=== PATIENT | male | born 1940 | race Caucasian/White ===

== ENCOUNTER 2023-12-10 10:59 | Outpatient (RCR) | payer OTHER, SELFPAY | END 2023-12-10 23:59 | disposition home or self-care (01) | LOC: RPT 10:59 | PROVIDERS: ATTENDING PHYSICIAN Orthopaedic Surgery Adult Reconstructive Orthopaedic Surgery; FAMILY PHYSICIAN Internal Medicine | DX: M76.892 Other specified enthesopathies of left lower limb, excluding foot (principal); M76.891 Other specified enthesopathies of right lower limb, excluding foot; M54.59 Other low back pain; Z73.6 Limitation of activities due to disability; R26.2 Difficulty in walking, not elsewhere classified; M62.81 Muscle weakness (generalized) | CPT/HCPCS: 97010; 97110; 97112; 97162; 97530 ==

== ENCOUNTER 2023-12-29 10:56 | Outpatient (RCR) | payer OTHER, SELFPAY | END 2024-01-07 23:59 | disposition home or self-care (01) | LOC: RPT 10:56 | PROVIDERS: ATTENDING PHYSICIAN Orthopaedic Surgery Adult Reconstructive Orthopaedic Surgery; FAMILY PHYSICIAN Internal Medicine | DX: M76.892 Other specified enthesopathies of left lower limb, excluding foot (principal); M76.891 Other specified enthesopathies of right lower limb, excluding foot; M54.59 Other low back pain; Z73.6 Limitation of activities due to disability; R26.2 Difficulty in walking, not elsewhere classified; M62.81 Muscle weakness (generalized) | CPT/HCPCS: 97010; 97110; 97112 ==

== ENCOUNTER 2024-02-08 10:03 | Emergency (ER) | payer OTHER, SELFPAY ==
[2024-02-08 10:19] VITALS: BP 144/79
--- NOTE | 2024-02-08 11:39 | ED.GENMED ---
History of Present Illness
General
Chief Complaint: Musculo-Skeletal Complaint
Source: patient
Exam Limitations: none
Time Seen by Provider: 02/08/24 11:15
Nursing documentation reviewed up to this point in time: agreed with
Travel History
Have you had any contact with someone who has COVID-19?: No
Do you have any symptoms of coronavirus? Fever > 100 degrees, chills, cough, shortness of breath, sore throat, loss of taste or smell, muscle aches, or headache?: No
History of Present Illness
History of Present Illness:
Patient is a 83 year old male with hx CAD, hypertension, hyperlipidemia presenting to the emergency department for evaluation of right shoulder pain. Patient states that he was attempting to kill a bug yesterday while in his bathroom when he
slipped causing him to fall. He proceeded to strike his right shoulder on the bathroom cabinet. He did not hit his head or lose consciousness. He denies sustaining any other injuries in the fall.
Patient reports significant pain in his right much worse with movement. He denies any numbness or tingling right upper extremity. Patient denies any headache, neck pain, back pain. Patient denies any chest pain or shortness of breath.
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 Nassar for corticosteroid injections in the past.
Past History
Past History
ED Past Medical History: CAD, HTN, Hypercholesterolemia, Other and Other (PVD)
Social History
Tobacco: Non-smoker
Alcohol: Binge drinker
Drug: None
Personal:
Living: with family
Employment: Retired
Family History
Family History: Other (Noncontributory)
Review of Systems
Review of Systems
Allergies reviewed?: Yes
All Other Systems: ROS reviewed and negative except as documented in HPI and ROS
Phy Exam
Physical Exam
Physical Exam:
Vitals: Patient's vital signs are stable. Afebrile
General: Patient is well appearing, no acute distress
Skin: Warm and dry, no rashes or lesions. No ecchymosis
Head: Normocephalic, atraumatic. No evidence of head trauma.
Eyes: Sclera nonicteric. EOMs intact. No nystagmus.
Throat: Protecting airway
Neck: Normal ROM, no cervical spine tenderness, no meningismus. No midline spinal tenderness.
Cardiac: Regular rate and rhythm, no murmurs.
Pulm: Normal respiratory effort, no wheezes, rales, rhonchi heard on exam.
Abdomen: No abdominal tenderness.
Extremities: Significant pain in RUE with shoulder abduction and external rotation. Limited ROM due to pain. No obvious swelling, bruising, or bony deformity of right upper extremity. No bony tenderness of right shoulder, right clavicle, or right
upper arm. Full active ROM of both right elbow and right wrist without pain. Good distal pulses of RUE.
Neuro: AAOx3. CN II-XII intact. No focal neurologic deficits.
Psychiatric: Normal affect.
Course
Orders/Labs/Results
Orders:
Orders
02/08/24 10:22
Shoulder, Right, Trauma [CR Shoulder, Trauma - Right] Urgent
Comment:
Reason For Exam: pain after a fall
02/08/24 11:47
Sling Right-Treatment ONCE
02/08/24 11:56
Tetanus/Diphth/Acelpertussis [Adacel] 0.5 ml IM .ONCE ONE
Vital Signs
Initial and Last Documented VS:
Initial Vital Signs
Temp Pulse BP Pulse Ox
97.9 F 61 144/79 92
02/08/24 10:19 02/08/24 10:19 02/08/24 10:19 02/08/24 10:19
Last Documented Vital Signs
Temp Pulse BP Pulse Ox
97.9 F 61 144/79 92
02/08/24 10:19 02/08/24 10:19 02/08/24 10:19 02/08/24 10:19
MDM/Problems Addressed
Differential Diagnosis Includes:
Not limited to: fracture, sprain, contusion, rotator cuff injury, dislocation
MDM/Problems Addressed:
83 year old male presenting with right shoulder pain following trip and fall yesterday evening. Did not sustain any other injuries during fall. No head strike or LOC. Vitals stable. Exam as above. He does have significant pain with both abduction
and external rotation of right shoulder. There is no bony tenderness or obvious deformity. Good distal pulses. Xray negative for any acute fracture or dislocation. With degree of pain and decreased range of motion - high suspicion for
ligamentous/rotator cuff injury. Will place patient in shoulder sling and have patient follow-up with ortho. Discussed importance of continuous movement of shoulder to prevent frozen shoulder. NSAIDS/tylenol for pain. Return precautions discussed.
Patient stable for discharge. Ortho referral provided.
Chronic conditions affecting care:
Osteoarthritis
Acute Exacerbation and/or Progression of Chronic Illness:
N/A
*Radiology
Radiology exam reviewed: preliminary read by ED provider and radiology read reviewed
*Pulse Oximetry
Patient hypoxic: no
*EKG
Interpreted by ED Provider?: NA
*Phlebotomy Tech Interpretation
Rate: Phlebotomy Tech- N/A
*Critical Care Note
Total Time (30-74mins, 75-104mins- exclusive of procedures): Not Applicable
ED Attending Note
-
Portions of this chart may have been created with voice recognition software.� Occasional wrong word or��sound alike� substitutions may have occurred due to the inherent limitations of voice recognition software.
Discharge Plan
Departure
Patient Disposition: Home (Routine Discharge)
Date of Disposition: 02/08/24
Time of Disposition: 11:58
Patient with high blood pressure during this ER visit?: Yes
Condition: Good
Covid-19: Not Applicable
Discharge Problem:
Injury of right shoulder
Instructions: Rotator Cuff Injury (DC), Shoulder Sprain (DC), How to Use a Shoulder Sling ED
Prescriptions:
No Action
aspirin 81 MG tablet,delayed release (DR/EC)
81 mg PO DAILY 0RF
rosuvastatin 20 MG tablet
20 mg PO QPM Qty: 30 5RF
ticagrelor [Brilinta] 90 MG tablet
90 mg PO BID Qty: 60 11RF
acetaminophen 325 MG tablet
325 mg PO DAILYPRN PRN (Reason: mild pain/ headache)
omeprazole 40 MG capsule,delayed release(DR/EC)
40 mg PO DAILY
alprazolam 0.5 MG tablet
0.5 mg PO BIDPRN PRN (Reason: anxiety)
cholecalciferol (vitamin D3) 5,000 UNIT tablet,disintegrating
5,000 unit PO Q48H
furosemide 40 MG tablet
40 mg PO DAILY Qty: 5 0RF
Rx Instructions:
take one tablet once daily x 5 days then stop
potassium chloride [Klor-Con M20] 20 MEQ tablet,ER particles/crystals
20 meq PO DAILY Qty: 5 0RF
Rx Instructions:
take one tablet once daily x 5 days then stop
metoprolol tartrate 25 MG tablet
25 mg PO BID Qty: 60 3RF
Rx Instructions:
stop taking atenolol
oxycodone 5 MG tablet
5 mg PO Q6HPRN PRN (Reason: moderate - severe pain) Qty: 10 0RF
Rx Instructions:
do not take within 6 hours if xanax is used
Referrals:
Anthony Nassar MD [Active] - Call in 1-3 days for appt
Mic Carter MD [Family Provider] -
Activity Restrictions/Additional Instructions:
-RETURN TO THE EMERGENCY DEPARTMENT WITH ANY CHEST PAIN, SHORTNESS OF BREATH, INTRACTABLE PAIN, NUMBNESS/TINGLING IN RIGHT UPPER EXTREMITY, WORSENING IN CURRENT SYMPTOMS, OR ANY OTHER CONCERNS
-As discussed�you should continue to take Motrin/Tylenol as needed for discomfort. You should keep your right arm in your shoulder sling for comfort. You should be sure to move your shoulder around frequently throughout the day to prevent frozen
shoulder.
-Follow-up with orthopedics, Dr. Nassar in a few days for further evaluation/management. You may require further imaging
Interventions
Interventions:
*Nursing Disposition Last Done: 02/08/24 12:21
ED-Musculoskeletal Assessment Last Done: 02/08/24 11:12
Discharge Date and Time
Discharge Date/Time: 02/08/24 12:22
Print Language: UKRAINIAN
[2024-02-08] MEDS: ADACEL 0.5 ML IM (12:05)
== END 2024-02-08 12:22 | disposition home or self-care (01) ==
LOC: EMR 10:03
PROVIDERS: EMERGENCY PHYSICIAN Emergency Medicine; FAMILY PHYSICIAN Internal Medicine
DX: S49.91XA Unspecified injury of right shoulder and upper arm, initial encounter (principal); W01.198A Fall on same level from slipping, tripping and stumbling with subsequent striking against other object, initial encounter; Y93.89 Activity, other specified; Y92.002 Bathroom of unspecified non-institutional (private) residence as the place of occurrence of the external cause; I25.10 Atherosclerotic heart disease of native coronary artery without angina pectoris; I10 Essential (primary) hypertension; E78.00 Pure hypercholesterolemia, unspecified; I73.9 Peripheral vascular disease, unspecified; Z79.82 Long term (current) use of aspirin; Z88.8 Allergy status to other drugs, medicaments and biological substances
CPT/HCPCS: 99283; 73030; 90715

== ENCOUNTER 2024-03-04 14:39 | Emergency (ER) | payer OTHER, SELFPAY ==
[2024-03-04 14:41] VITALS: BP 152/75
--- NOTE | 2024-03-04 16:46 | ED.GENMED ---
History of Present Illness
<Andreina Lee PA-C - Last Filed: 03/04/24 20:26>
General
Chief Complaint: Fall
Source: patient
Exam Limitations: none
Time Seen by Provider: 03/04/24 16:44
Nursing documentation reviewed up to this point in time: agreed with
History of Present Illness
History of Present Illness:
Patient is an 83-year-old male presenting for evaluation of bilateral shoulder pain and weakness following mechanical fall yesterday afternoon. Patient states that he slipped in his garage while he was trying to connect his radio landing on his
right shoulder on a concrete step. He then rolled off the step landing on his left shoulder. Patient states he has been having significant pain in his bilateral shoulders and very limited range of motion due to pain since. Patient states that he
did not hit his head or lose consciousness. Patient denies any headache, neck pain, confusion, nausea/vomiting, visual changes. Patient denies any preceding dizziness, lightheadedness, chest pain, prior to fall. Patient denies sustaining any
other injuries in the fall.
Patient has been following with Dr. Nassar for injury of his right shoulder and is currently planning for an MRI shortly.
Past History
<Andreina Lee PA-C - Last Filed: 03/04/24 20:26>
Past History
ED Past Medical History: CAD, HTN, Hypercholesterolemia, Other and Other (PVD)
Social History
Tobacco: Non-smoker
Alcohol: Binge drinker
Drug: None
Personal:
Living: with family
Employment: Retired
Family History
Family History: Other (Noncontributory)
Review of Systems
<Andreina Lee PA-C - Last Filed: 03/04/24 20:26>
Review of Systems
Allergies reviewed?: Yes
All Other Systems: ROS reviewed and negative except as documented in HPI and ROS
Phy Exam
<Andreina Lee PA-C - Last Filed: 03/04/24 20:26>
Physical Exam
Physical Exam:
Vitals: Patient's vital signs are stable. Afebrile
General: Patient is well appearing, no acute distress. Nontoxic-appearing
Skin: Warm and dry, no rashes or lesions. No ecchymoses
Head: Normocephalic, atraumatic
Eyes: Sclera nonicteric. EOMs intact. No nystagmus.
Throat: Protecting airway
Neck: Normal ROM, no cervical spine tenderness, no meningismus. Trachea midline. No midline spinal tenderness
Cardiac: Regular rate and rhythm, no murmurs. No anterior chest wall tenderness or bruising
Pulm: Normal respiratory effort, no wheezes, rales, rhonchi heard on exam. No tenderness and bruising to bilateral anterior posterior ribs.
Abdomen: Abdomen soft. No abdominal tenderness.
Extremities: Right upper extremity without any bony tenderness, swelling, or bruising. Significant limitations in abduction of right shoulder, although flexion/extension intact against resistance. Right upper extremity neurovascularly intact.
Great distal pulses. Left upper extremity with some mild tenderness over AC joint without any obvious deformity. Significant limitations in abduction of left shoulder, although flexion extension intact against resistance. Left upper extremity
neurovascular intact. Great distal pulses
Neuro: AAOx3. CN II-XII intact. No focal neurologic deficits. Sensation fully intact
Psychiatric: Normal affect.
Course
<Andreina Lee PA-C - Last Filed: 03/04/24 20:26>
Orders/Labs/Results
Orders:
Orders
03/04/24 17:03
CR Shoulder, Trauma - Left Urgent
Reason For Exam: fall, pain + weakness
CR Shoulder, Trauma - Right Urgent
Reason For Exam: fall, pain + weakness
Vital Signs
Initial and Last Documented VS:
Initial Vital Signs
Temp Pulse Resp BP Pulse Ox
97.6 F 75 18 152/75 95
03/04/24 14:41 03/04/24 14:41 03/04/24 14:41 03/04/24 14:41 03/04/24 14:41
Last Documented Vital Signs
Temp Pulse Resp BP Pulse Ox
97.6 F 75 18 152/75 95
03/04/24 14:41 03/04/24 14:41 03/04/24 14:41 03/04/24 14:41 03/04/24 14:41
<Kennedy Sheikh MD - Last Filed: 03/04/24 17:50>
Orders/Labs/Results
Orders:
Orders
03/04/24 17:03
CR Shoulder, Trauma - Left Urgent
Reason For Exam: fall, pain + weakness
CR Shoulder, Trauma - Right Urgent
Reason For Exam: fall, pain + weakness
Vital Signs
Initial and Last Documented VS:
Initial Vital Signs
Temp Pulse Resp BP Pulse Ox
97.6 F 75 18 152/75 95
03/04/24 14:41 03/04/24 14:41 03/04/24 14:41 03/04/24 14:41 03/04/24 14:41
Last Documented Vital Signs
Temp Pulse Resp BP Pulse Ox
97.6 F 75 18 152/75 95
03/04/24 14:41 03/04/24 14:41 03/04/24 14:41 03/04/24 14:41 03/04/24 14:41
<Andreina Lee PA-C - Last Filed: 03/04/24 20:26>
MDM/Problems Addressed
Differential Diagnosis Includes:
Not limited to: Rotator cuff injury, shoulder fracture, shoulder sprain, shoulder dislocation
MDM/Problems Addressed:
83-year-old male presenting with bilateral shoulder pain and limited range of motion following mechanical fall yesterday. There was no head strike or loss of consciousness. Patient with chronic right shoulder injury which she has been following
with Dr. Nassar for which MRI is currently being scheduled. Patient's vital signs are stable. Physical exam as above. Patient does have significant difficulty with active abduction of bilateral shoulders due to pain, although flexion appears
intact. Right shoulder without any bony tenderness or obvious deformity. Left shoulder does have mild tenderness overlying the AC joint without any obvious bony deformity. There is no obvious abrasions, erythema, swelling, or bruising of
bilateral shoulders. No evidence of head trauma. No C-spine tenderness or midline spinal tenderness. No abdominal bruising or tenderness/bruising overlying anterior/posterior ribs bilaterally.
Patient recently took Motrin/Tylenol for pain. Will apply ice. Will check x-rays of both shoulders to ensure no acute fracture or dislocation�although I suspect likely rotator cuff injuries.
X-rays reviewed�no acute fractures or dislocations. Patient was offered shoulder sling�which she declined. Recommended Tylenol, ice, Ortho follow-up. This will likely require further imaging.
Patient comfortable with plan. All questions answered.
Chronic conditions affecting care:
N/A
Acute Exacerbation and/or Progression of Chronic Illness:
N/A
<Andreina Lee PA-C - Last Filed: 03/04/24 20:26>
*Radiology
Radiology exam reviewed: preliminary read by ED provider and radiology read reviewed
*Pulse Oximetry
Patient hypoxic: no
*EKG
Interpreted by ED Provider?: NA
*Family Development Specialist Interpretation
Rate: Family Development Specialist- N/A
*Critical Care Note
Total Time (30-74mins, 75-104mins- exclusive of procedures): Not Applicable
ED Attending Note
<Andreina Lee PA-C - Last Filed: 03/04/24 20:26>
-
Portions of this chart may have been created with voice recognition software.� Occasional wrong word or��sound alike� substitutions may have occurred due to the inherent limitations of voice recognition software.
<Kennedy Sheikh MD - Last Filed: 03/04/24 17:50>
ED Attending Note
Patient seen and examined by attending physician: Yes
I performed the substantive portion of visit, reviewed & personally made and approve the management plan that is documented in note by myself or SARAH.: Yes
ED Attending Note:
Patient fell yesterday landing on his right than left shoulder. Complaining of more left shoulder pain. Has had chronic ongoing right shoulder issues. No head injury no neck pain no syncope no other complaints.
On exam patient is nontoxic. Normocephalic atraumatic. Neck supple and nontender. No chest wall tender. He is nontoxic in appearance he has significant trouble abducting the right shoulder. He is able to flex and extend against resistance. No
point tenderness. No swelling no abrasion. The rest of the right upper extremity is within normal limits. Left upper extremity also has significant issues with abduction. Again able to flex and extend. Mild tenderness over the left AC joint
although no deformity. Good distal pulses and color.
Suspect patient has a rotator cuff tear to the left shoulder. Appears to have a chronic tear to the right. Discussed pain management. Also discussed slings and rotation of the arm to prevent frozen shoulder and orthopedic follow-up. Patient does
have help at home.
Discharge Plan
Departure
Patient Disposition: Home (Routine Discharge)
Date of Disposition: 03/04/24
Time of Disposition: 18:19
Patient with high blood pressure during this ER visit?: Yes
Condition: Good
Covid-19: Not Applicable
Discharge Problem:
Bilateral shoulder injury, Fall
Instructions: Rotator Cuff Injury (DC)
Prescriptions:
No Action
aspirin 81 MG tablet,delayed release (DR/EC)
81 mg PO DAILY 0RF
rosuvastatin 20 MG tablet
20 mg PO QPM Qty: 30 5RF
ticagrelor [Brilinta] 90 MG tablet
90 mg PO BID Qty: 60 11RF
acetaminophen 325 MG tablet
325 mg PO DAILYPRN PRN (Reason: mild pain/ headache)
omeprazole 40 MG capsule,delayed release(DR/EC)
40 mg PO DAILY
alprazolam 0.5 MG tablet
0.5 mg PO BIDPRN PRN (Reason: anxiety)
cholecalciferol (vitamin D3) 5,000 UNIT tablet,disintegrating
5,000 unit PO Q48H
furosemide 40 MG tablet
40 mg PO DAILY Qty: 5 0RF
Rx Instructions:
take one tablet once daily x 5 days then stop
potassium chloride [Klor-Con M20] 20 MEQ tablet,ER particles/crystals
20 meq PO DAILY Qty: 5 0RF
Rx Instructions:
take one tablet once daily x 5 days then stop
metoprolol tartrate 25 MG tablet
25 mg PO BID Qty: 60 3RF
Rx Instructions:
stop taking atenolol
oxycodone 5 MG tablet
5 mg PO Q6HPRN PRN (Reason: moderate - severe pain) Qty: 10 0RF
Rx Instructions:
do not take within 6 hours if xanax is used
Referrals:
Anthony Nassar MD [Active] - Next open appointment
Mic Carter MD [Family Provider] -
Activity Restrictions/Additional Instructions:
RETURN TO THE EMERGENCY DEPARTMENT WITH ANY HEADACHE, NECK PAIN, NUMBNESS/TINGLING IN BILATERAL UPPER EXTREMITIES, INTRACTABLE PAIN, WORSENING IN CURRENT SYMPTOMS, OR ANY OTHER CONCERNS
-As discussed�you should take Motrin and/or Tylenol as needed for discomfort. You should apply ice. You can keep arms and shoulder sling as needed for discomfort.
-As discussed�you should follow-up with orthopedics for further evaluation/management. You may require further imaging of the shoulder.
Interventions
Interventions:
*Nursing Disposition Last Done: 03/04/24 18:25
ED-Musculoskeletal Assessment Last Done: 03/04/24 18:17
ED- Neurological Assessment Last Done: 03/04/24 18:17
ED-Skin Assessment Last Done: 03/04/24 18:18
Discharge Date and Time
Discharge Date/Time: 03/04/24 18:29
Print Language: NIGERIAN
== END 2024-03-04 18:29 | disposition home or self-care (01) ==
LOC: EMR 14:39
PROVIDERS: EMERGENCY PHYSICIAN Emergency Medicine; FAMILY PHYSICIAN Internal Medicine
DX: S49.92XA Unspecified injury of left shoulder and upper arm, initial encounter (principal); S49.91XA Unspecified injury of right shoulder and upper arm, initial encounter; R53.1 Weakness; W01.0XXA Fall on same level from slipping, tripping and stumbling without subsequent striking against object, initial encounter; I25.10 Atherosclerotic heart disease of native coronary artery without angina pectoris; I10 Essential (primary) hypertension; E78.00 Pure hypercholesterolemia, unspecified; I73.9 Peripheral vascular disease, unspecified; K21.9 Gastro-esophageal reflux disease without esophagitis; K44.9 Diaphragmatic hernia without obstruction or gangrene; Z95.5 Presence of coronary angioplasty implant and graft; Z87.891 Personal history of nicotine dependence; Z88.8 Allergy status to other drugs, medicaments and biological substances
CPT/HCPCS: 99283; 73030

== ENCOUNTER → 2024-04-07 12:27 | Outpatient (REF) | payer OTHER, SELFPAY | LOC: RAD 12:27 | PROVIDERS: ATTENDING PHYSICIAN Internal Medicine | DX: M54.50 Low back pain, unspecified (principal) | CPT/HCPCS: 72110 ==

== ENCOUNTER → 2024-05-23 09:49 | Outpatient (REF) | payer OTHER, SELFPAY | LOC: RAD 09:49 | PROVIDERS: ATTENDING PHYSICIAN Physician Assistant; FAMILY PHYSICIAN Internal Medicine | DX: I71.40 Abdominal aortic aneurysm, without rupture, unspecified (principal); I73.9 Peripheral vascular disease, unspecified | CPT/HCPCS: 76770; 93922; 93925 ==

== ENCOUNTER 2024-08-08 13:32 | Emergency (ER) | payer OTHER, SELFPAY ==
[2024-08-08 13:35] VITALS: BP 108/81
[2024-08-08 13:36] VITALS: BP 108/81
[2024-08-08 13:45] VITALS: BMI 31.1
[2024-08-08 14:00] VITALS: BP 124/58
[2024-08-08 14:11] LABS: Hematocrit 37.4 % (39.0-52.0); Hemoglobin 12.4 g/dL (13.0-18.0); Mean Corp Hgb Conc. 33.2 g/dL (33.0-37.0); Mean Corpuscular Hgb 36.5 pg (27.0-31.0); Mean Platelet Volume 9.9 fL (7.4-10.4); Platelet Count 151 10^3/uL (130-400); White Blood Cell Count 6.2 10^3/uL (4.8-10.8)
--- NOTE | 2024-08-08 14:16 | ED.GENMED ---
History of Present Illness
<Andreina Lee PA-C - Last Filed: 08/08/24 18:26>
General
Chief Complaint: Fall
Source: patient
Exam Limitations: none
Time Seen by Provider: 08/08/24 13:56
Nursing documentation reviewed up to this point in time: agreed with
History of Present Illness
History of Present Illness:
84-year-old male with history CAD, hypertension, hyperlipidemia presenting to the emergency department via EMS following mechanical fall with associated posterior head strike. Patient states that he was stepping into his pickup truck when he lost
his footing falling backwards striking the back of his head on the cement. Patient denies any loss of consciousness however he was unable to get up on his own and called 911. His was inside at the time and did not witness the fall. Patient
reports a headache, right-sided neck pain, and left-sided rib pain. He does deny any nausea/vomiting, dizziness, visual changes, numbness/tingling in lower legs. Patient denies any back pain, chest pain, or shortness of breath.
Patient states that this was a mechanical fall and denies any preceding dizziness, lightheadedness.
Patient does take a baby aspirin. Patient does have a updated tetanus.
Past History
<Andreina Lee PA-C - Last Filed: 08/08/24 18:26>
Past History
ED Past Medical History: CAD, HTN, Hypercholesterolemia, Other and Other (PVD)
Social History
Tobacco: Non-smoker
Alcohol: Binge drinker
Drug: None
Personal:
Living: with family
Employment: Retired
Family History
Family History: Other (Noncontributory)
Review of Systems
<Andreina Lee PA-C - Last Filed: 08/08/24 18:26>
Review of Systems
Allergies reviewed?: Yes
All Other Systems: ROS reviewed and negative except as documented in HPI and ROS
Phy Exam
<Andreina Lee PA-C - Last Filed: 08/08/24 18:26>
Physical Exam
Physical Exam:
GENERAL: No acute distress
HEENT: Contusion to posterior scalp with mild abrasion. Extraocular muscles intact, no signs of entrapment, pupils equal round reactive light bilaterally, no proptosis or signs of orbital trauma. Dentition intact, no other obvious trauma
NECK: Arrives in cervical collar. No midline tenderness. Some mild right paracervical muscular tenderness.
BACK: no midline tenderness, no other obvious trauma
CHEST: Left lower anterior chest wall tenderness, no flail segment, no subcutaneous emphysema, no other obvious trauma
LUNGS: clear to auscultation bilaterally
CARDIOVASCULAR: regular rate and rhythm
ABDOMEN: soft, non-tender, no masses, no other obvious trauma
PELVIS: stable, no obvious injury
EXTREMITIES: Bilateral upper and lower nontender with full range of motion. Moving all extremities, distal pulses intact. Very minor abrasion to left hand at medial aspect not actively bleeding. No other obvious trauma
NEUROLOGIC: awake, alert x 3, no focal deficits. Strength 5-5 in upper and lower extremities. Fluid speech
Course
<Andreina Lee PA-C - Last Filed: 08/08/24 18:26>
Orders/Labs/Results
Orders:
Orders
08/08/24 13:46
CT Cervical Spine W/o Iv Contr Urgent
Comment:
Reason For Exam: fall
CT Head W/o Iv Contrast Urgent
Comment:
Reason For Exam: fall
CR Ribs-left 3 Vw W/pa Chest Urgent
Comment:
Reason For Exam: fall
08/08/24 13:49
BMP [Basic Metabolic Panel] Urgent
CBC/No Diff [Complete Blood Count/No Diff] Urgent
08/08/24 14:15
Acetaminophen [Tylenol] 650 mg PO NOW STA
08/08/24 16:36
Incentive Spirometry [Rx Incentive Spirometry] [RESP] Urgent
Frequency: q1h while awake
Abnormal Lab Results
08/08/24
13:49
RBC 3.40 L 10^6/uL
(4.70-6.10)
Hgb 12.4 L g/dL
(13.0-18.0)
Hct 37.4 L %
(39.0-52.0)
MCV 110.0 H fL
(80.0-94.0)
MCH 36.5 H pg
(27.0-31.0)
Creatinine 0.6 L mg/dL
(0.7-1.3)
Glucose 138 H mg/dl
(70-99)
08/08/24 13:49
08/08/24 13:49
Vital Signs
Initial and Last Documented VS:
Initial Vital Signs
Temp Pulse Resp BP Pulse Ox
97.7 F 74 17 108/81 92
08/08/24 13:35 08/08/24 13:35 08/08/24 13:35 08/08/24 13:35 08/08/24 13:35
Last Documented Vital Signs
Temp Pulse Resp BP Pulse Ox
97.7 F 66 17 116/76 97
08/08/24 13:35 08/08/24 14:50 08/08/24 14:50 08/08/24 17:03 08/08/24 17:03
<Kennedy Humphrey, - Last Filed: 08/08/24 20:26>
Orders/Labs/Results
Orders:
Orders
08/08/24 13:46
CT Cervical Spine W/o Iv Contr Urgent
Comment:
Reason For Exam: fall
CT Head W/o Iv Contrast Urgent
Comment:
Reason For Exam: fall
CR Ribs-left 3 Vw W/pa Chest Urgent
Comment:
Reason For Exam: fall
08/08/24 13:49
BMP [Basic Metabolic Panel] Urgent
CBC/No Diff [Complete Blood Count/No Diff] Urgent
08/08/24 14:15
Acetaminophen [Tylenol] 650 mg PO NOW STA
08/08/24 16:36
Incentive Spirometry [Rx Incentive Spirometry] [RESP] Urgent
Frequency: q1h while awake
Abnormal Lab Results
08/08/24
13:49
RBC 3.40 L 10^6/uL
(4.70-6.10)
Hgb 12.4 L g/dL
(13.0-18.0)
Hct 37.4 L %
(39.0-52.0)
MCV 110.0 H fL
(80.0-94.0)
MCH 36.5 H pg
(27.0-31.0)
Creatinine 0.6 L mg/dL
(0.7-1.3)
Glucose 138 H mg/dl
(70-99)
08/08/24 13:49
08/08/24 13:49
Vital Signs
Initial and Last Documented VS:
Initial Vital Signs
Temp Pulse Resp BP Pulse Ox
97.7 F 74 17 108/81 92
08/08/24 13:35 08/08/24 13:35 08/08/24 13:35 08/08/24 13:35 08/08/24 13:35
Last Documented Vital Signs
Temp Pulse Resp BP Pulse Ox
97.7 F 66 17 116/76 97
08/08/24 13:35 08/08/24 14:50 08/08/24 14:50 08/08/24 17:03 08/08/24 17:03
<Andreina Lee PA-C - Last Filed: 08/08/24 18:26>
MDM/Problems Addressed
Differential Diagnosis Includes:
Not limited to: Scalp contusion, concussion, skull fracture, intracerebral hemorrhage, cervical spine fracture, cervical muscle strain, rib fracture, pneumothorax, hemothorax, pulmonary contusion, etc.
MDM/Problems Addressed:
84-year-old male presenting following mechanical slip and fall with associated posterior head strike. Not on any oral anticoagulation. There was no loss of conscious. Patient complaining of left lower chest wall pain. No chest pain or shortness
of breath. Vital signs acceptable. Physical exam as above. Patient arrives with a GCS of 15 and a cervical collar. He has some mild right paracervical spinal tenderness although no midline cervical or spinal tenderness. He does have a contusion
with mild abrasion to his posterior scalp. Heart regular rate and rhythm. Lungs are clear bilaterally. He does have tenderness to his left anterior ribs. Abdomen is soft and nontender. There is a very mild abrasion to his left hand. No other
evidence of traumatic injuries to bilateral upper and lower extremities. Patient is perfusing well with great distal pulses.
This does seem to be mechanical fall. Labs were initiated in triage without any clinically significant abnormalities. Will check CT head and cervical spine. Will check rib series x-ray. Will give Tylenol. Tetanus is updated. Will closely
monitor and reassess
Chronic conditions affecting care:
N/A
Acute Exacerbation and/or Progression of Chronic Illness:
N/A
<Andreina Lee PA-C - Last Filed: 08/08/24 18:26>
*Radiology
Radiology exam reviewed: preliminary read by ED provider and radiology read reviewed
*Pulse Oximetry
Patient hypoxic: yes (Mild intermittent hypoxia at rest -placed on supplemental O2)
*EKG
Interpreted by ED Provider?: NA
*[employer] Developer Interpretation
Rate: normal
Interpretation: normal
Heart Rate: 72
Rhythm: sinus
*Critical Care Note
Total Time (30-74mins, 75-104mins- exclusive of procedures): Not Applicable
<Andreina Lee PA-C - Last Filed: 08/08/24 18:26>
Update Note
Update Note:
Update: CT head and cervical spine without any acute traumatic abnormalities. Did remove patient cervical collar. While in emergency department it was noted that patient O2 saturation was dropping intermittently to 88%. He was placed on O2 nasal
cannula. Patient was taken directly to chest x-ray to rule out rib fractures and associated traumatic pneumothorax versus other acute pulmonary abnormalities.
Update: X-ray shows no signs of rib fracture. There is no pneumothorax. I do suspect the patient likely suffered a pulmonary contusion. Patient overall well-appearing. Admission was discussed with patient although he would like to be discharged
home given his brother is currently on hospice care. Patient was seen in conjunction with attending physician. Patient will be discharged home with VERY STRICT return precautions including any shortness of breath/difficulty breathing or chest
pain. He will follow very closely with primary care outpatient. He was provided incentive spirometer and instructions to use. Patient comfortable with plan and states that he will come back with any worsening or changes in condition.
ED Attending Note
<Andreina Lee PA-C - Last Filed: 08/08/24 18:26>
-
Portions of this chart may have been created with voice recognition software.� Occasional wrong word or��sound alike� substitutions may have occurred due to the inherent limitations of voice recognition software.
<Kennedy Humphrey DO - Last Filed: 08/08/24 20:26>
ED Attending Note
Patient seen and examined by attending physician: Yes
I performed the substantive portion of visit, reviewed & personally made and approve the management plan that is documented in note by myself or SARAH.: Yes
ED Attending Note:
Patient is an 84-year-old male who was going to see his brother who is on hospice and he is getting into his truck he fell backwards striking his head and now complains of left rib pain. Patient denies shortness of breath but does admit to pain
with breathing. Patient denies loss of consciousness, nausea or vomiting. Patient denies any numbness or paresthesias, focal weakness, ataxia. Patient had bypass surgery in the past. On physical exam patient normocephalic with mild tenderness
posteriorly. Cervical spine is nontender. Lungs are clear. Abdomen soft nontender. Left chest wall is tender without crepitus, deformity or subcutaneous emphysema. Patient's extremities are nontender and neurologically patient is intact. We
reviewed the CTs and the films. Patient fortunately does not appear to have fractured any bones but will probably have a bit of a pulmonary contusion given fact he dropped part of his pulse ox earlier. Patient understands what to look for.
Patient would like to be discharged so he can go see his brother.
Discharge Plan
Departure
Patient Disposition: Home (Routine Discharge)
Date of Disposition: 08/08/24
Time of Disposition: 16:36
Patient with high blood pressure during this ER visit?: No
Condition: Good
Covid-19: Not Applicable
Discharge Problem:
Fall, Contusion of scalp, Contusion of lung
Instructions: How to Use an Incentive Spirometer, Head injury in adults, Bruised Lung (DC)
Prescriptions:
No Action
aspirin 81 MG tablet,delayed release (DR/EC)
81 mg PO DAILY 0RF
rosuvastatin 20 MG tablet
20 mg PO QPM Qty: 30 5RF
ticagrelor [Brilinta] 90 MG tablet
90 mg PO BID Qty: 60 11RF
acetaminophen 325 MG tablet
325 mg PO DAILYPRN PRN (Reason: mild pain/ headache)
omeprazole 40 MG capsule,delayed release(DR/EC)
40 mg PO DAILY
alprazolam 0.5 MG tablet
0.5 mg PO BIDPRN PRN (Reason: anxiety)
cholecalciferol (vitamin D3) 5,000 UNIT tablet,disintegrating
5,000 unit PO Q48H
furosemide 40 MG tablet
40 mg PO DAILY Qty: 5 0RF
Rx Instructions:
take one tablet once daily x 5 days then stop
potassium chloride [Klor-Con M20] 20 MEQ tablet,ER particles/crystals
20 meq PO DAILY Qty: 5 0RF
Rx Instructions:
take one tablet once daily x 5 days then stop
metoprolol tartrate 25 MG tablet
25 mg PO BID Qty: 60 3RF
Rx Instructions:
stop taking atenolol
oxycodone 5 MG tablet
5 mg PO Q6HPRN PRN (Reason: moderate - severe pain) Qty: 10 0RF
Rx Instructions:
do not take within 6 hours if xanax is used
Referrals:
Mic Carter MD [Family Provider] - Follow up in 2-3 days
Activity Restrictions/Additional Instructions:
RETURN TO THE EMERGENCY DEPARTMENT WITH ANY SHORTNESS OF BREATH/DIFFICULTY BREATHING, CHEST PAIN, FEVERS, SEVERE HEADACHE/NECK PAIN, NAUSEA/VOMITING, CONFUSION, WORSENING IN CURRENT SYMPTOMS, OR ANY OTHER CONCERNS
-As discussed�it is likely you suffered a contusion to your lung. It is very important that you use the incentive spirometer multiple times per hour to expand your lung. If you have any shortness of breath/difficulty breathing or chest pain�please
return immediately to the emergency department
-You can take Tylenol as needed for any discomfort. You can apply ice/heat as needed.
-You should follow-up with your primary care provider in a few days for further evaluation/management to ensure that symptoms are improving
Monitor your symptoms very closely return to the emergency department any acute worsening/new symptoms or any other concerns
Interventions
Interventions:
*Risk Screen - Suicide Last Done: 08/08/24 13:35
*General Assessment Last Done: 08/08/24 13:35
*Neglect/Abuse Screening Last Done: 08/08/24 13:35
ED- Fall Risk Assessment Last Done: 08/08/24 17:23
*ED COVID-19 Vaccine History Last Done: 08/08/24 13:35
*Nursing Disposition Last Done: 08/08/24 17:23
ED-Musculoskeletal Assessment Last Done: 08/08/24 14:30
ED- Neurological Assessment Last Done: 08/08/24 14:30
ED-Skin Assessment Last Done: 08/08/24 14:30
Discharge Date and Time
Discharge Date/Time: 08/08/24 17:10
Print Language: SETSWANA
[2024-08-08 14:21] LABS: Blood Urea Nitrogen 15 mg/dl (9-20); Calcium 9.4 mg/dl (8.4-10.2); Carbon Dioxide 24 mmol/L (22-30); Chloride 104 mmol/L (98-107); Estimated Creatinine Clearance 118 ml/min; Glucose 138 mg/dl (70-99); Sodium 140 mmol/L (135-145); eGFR > 60.00
[2024-08-08 15:26] VITALS: BP 129/60
[2024-08-08 16:00] VITALS: BP 150/83
[2024-08-08] MEDS: TYLENOL 650 MG PO (16:10)
[2024-08-08 17:03] VITALS: BP 116/76
== END 2024-08-08 17:10 | disposition home or self-care (01) ==
LOC: EMR 13:32
PROVIDERS: EMERGENCY PHYSICIAN Emergency Medicine; FAMILY PHYSICIAN Internal Medicine
DX: S00.03XA Contusion of scalp, initial encounter (principal); S27.329A Contusion of lung, unspecified, initial encounter; S60.512A Abrasion of left hand, initial encounter; V48.4XXA Person boarding or alighting a car injured in noncollision transport accident, initial encounter; I25.10 Atherosclerotic heart disease of native coronary artery without angina pectoris; I10 Essential (primary) hypertension; E78.00 Pure hypercholesterolemia, unspecified
CPT/HCPCS: 99284; 70450; 71101; 72125; 80048; 85027

== ENCOUNTER 2024-08-09 03:43 | Observation (INO) | payer OTHER, SELFPAY ==
[2024-08-08 22:25] VITALS: BP 131/58
--- NOTE | 2024-08-08 23:22 | ED.GENMED ---
History of Present Illness
<Haylie Snyder MD, Resident - Last Filed: 08/08/24 23:40>
General
Chief Complaint: Fall
Time Seen by Provider: 08/08/24 22:37
History of Present Illness
History of Present Illness:
84 y/o male with pmhx of HTN, HLP, CAD pressenting to the ED with pain with deep breaths, neck pain and decreased urinary flow. Denies chest pain, lightheadedness, headache, blood in urine, nausea, vomiting, fever. Patient was seen here earlier
today for a mechanical fall. Head CT, cervical spine CT and chest x-ray were negative for any acute abnormalities. Pt notes cervical neck pain lateral to the right, left lower ribs pain that increases with cough and deep breaths, and pain in his
left knee - unable to bear weight. Patient is taking motrin and tylenol for pain and notes these do not relieve his pain. Also notes decreased urine flow since discharge but does not feel bladder fullness and denies abdominal/flank pain.
Past History
<Haylie Snyder MD, Resident - Last Filed: 08/08/24 23:40>
Past History
ED Past Medical History: CAD, HTN, Hypercholesterolemia, Other and Other (PVD)
Social History
Tobacco: Non-smoker
Alcohol: Binge drinker
Drug: None
Personal:
Living: with family
Employment: Retired
Family History
Family History: Other (Noncontributory)
Review of Systems
<Haylie Snyder MD, Resident - Last Filed: 08/08/24 23:40>
Review of Systems
Constitutional: Reports no symptoms
EENT: Reports no symptoms
Respiratory: Reports other (Pain with breathing)
Cardiac: Reports no symptoms
ABD/GI: Reports no symptoms
: Reports difficulty voiding
Musculoskeletal: Reports neck pain and other (Left knee pain)
Skin: Reports no symptoms
Neurological: Reports no symptoms
Endocrine: Reports no symptoms
Hematologic/Lymphatic: Reports no symptoms
Psychiatric: Reports no symptoms
Phy Exam
<Haylie Snyder MD, Resident - Last Filed: 08/08/24 23:40>
Physical Exam
Physical Exam:
GENERAL: Alert, in no apparent distress
EYE: pupils equal and reactive
NECK: Supple, no significant adenopathy. No midline cervical tenderness.
ENT: o/p clr, mmm.
CARDIAC: Regular rate and rhythm.
LUNGS: Clear breath sounds bilaterally, no acute respiratory distress, no wheezes/rales/rhonchi. Tenderness on left lower hemithorax.
ABDOMEN: Soft, without focal tenderness, no r/g, no cvat
NEUROLOGICAL: Alert and oriented, no focal neuro deficits
SKIN: Warm and dry, skin intact.
MUSCULOSKELETAL: No edema, well perfused. Left knee range of motion is normal. No joint tenderness. Patient refuses anterior drawer test due to pain.
PSYCH: Normal and appropriate interaction.
Course
<Haylie Snyder MD, Resident - Last Filed: 08/08/24 23:40>
Orders/Labs/Results
Orders:
Orders
08/08/24 23:04
CT Chest W/o Iv Contrast Urgent
Comment:
Reason For Exam: left rib pain, mechanical fall
Ketorolac [Toradol] 30 mg IV NOW STA
CR Knee - Left 1 Or 2 Views Urgent
Comment:
Reason For Exam: mechanical fall, left knee pain
08/08/24 23:28
Urinalysis Reflex To Culture Urgent
Date Specimen was Collected: 08/09/24
Time Specimen was Collected: 00:52
08/08/24 23:39
Complete Blood Count/With Diff Urgent
Comprehensive Metabolic Panel Urgent
Abnormal Lab Results
08/08/24
23:39
RBC 3.14 L 10^6/uL
(4.70-6.10)
Hgb 11.5 L g/dL
(13.0-18.0)
Hct 34.2 L %
(39.0-52.0)
MCV 108.9 H fL
(80.0-94.0)
MCH 36.6 H pg
(27.0-31.0)
Absolute Lymphs (auto) 0.6 L 10^3/uL
(1.2-3.4)
Absolute Monos (auto) 0.9 H 10^3/uL
(0.1-0.6)
Lymphocytes % 10.4 L %
(20.5-51.1)
Monocytes % 14.2 H %
(1.7-9.3)
Creatinine 0.6 L mg/dL
(0.7-1.3)
Glucose 100 H mg/dl
(70-99)
08/08/24 23:39
08/08/24 23:39
Vital Signs
Initial and Last Documented VS:
Initial Vital Signs
Temp Pulse Resp BP Pulse Ox
97.5 F 73 22 131/58 93
08/08/24 22:25 08/08/24 22:25 08/08/24 22:25 08/08/24 22:25 08/08/24 22:25
Last Documented Vital Signs
Temp Pulse Resp BP Pulse Ox
97.8 F 68 19 124/61 91
08/09/24 15:00 08/09/24 15:00 08/09/24 15:00 08/09/24 15:00 08/09/24 15:00
<Elma Elena, DO - Last Filed: 08/09/24 22:16>
Orders/Labs/Results
Orders:
Orders
08/08/24 23:04
CT Chest W/o Iv Contrast Urgent
Comment:
Reason For Exam: left rib pain, mechanical fall
Ketorolac [Toradol] 30 mg IV NOW STA
CR Knee - Left 1 Or 2 Views Urgent
Comment:
Reason For Exam: mechanical fall, left knee pain
08/08/24 23:28
Urinalysis Reflex To Culture Urgent
Date Specimen was Collected: 08/09/24
Time Specimen was Collected: 00:52
08/08/24 23:39
Complete Blood Count/With Diff Urgent
Comprehensive Metabolic Panel Urgent
Abnormal Lab Results
08/08/24
23:39
RBC 3.14 L 10^6/uL
(4.70-6.10)
Hgb 11.5 L g/dL
(13.0-18.0)
Hct 34.2 L %
(39.0-52.0)
MCV 108.9 H fL
(80.0-94.0)
MCH 36.6 H pg
(27.0-31.0)
Absolute Lymphs (auto) 0.6 L 10^3/uL
(1.2-3.4)
Absolute Monos (auto) 0.9 H 10^3/uL
(0.1-0.6)
Lymphocytes % 10.4 L %
(20.5-51.1)
Monocytes % 14.2 H %
(1.7-9.3)
Creatinine 0.6 L mg/dL
(0.7-1.3)
Glucose 100 H mg/dl
(70-99)
08/08/24 23:39
08/08/24 23:39
Vital Signs
Initial and Last Documented VS:
Initial Vital Signs
Temp Pulse Resp BP Pulse Ox
97.5 F 73 22 131/58 93
08/08/24 22:25 08/08/24 22:25 08/08/24 22:25 08/08/24 22:25 08/08/24 22:25
Last Documented Vital Signs
Temp Pulse Resp BP Pulse Ox
97.8 F 68 19 124/61 91
08/09/24 15:00 08/09/24 15:00 08/09/24 15:00 08/09/24 15:00 08/09/24 15:00
<Haylie Snyder MD, Resident - Last Filed: 08/08/24 23:40>
MDM/Problems Addressed
Differential Diagnosis Includes:
Rib fracture
Urinary retention secondary to pain
Left knee fracture vs ligamentous injury
MDM/Problems Addressed:
- Bladder scan
- CBC, CMP, U/A
- Chest CT w/o contrast
- Left knee x-ray
- Toradol IV bolus
<Haylie Snyder MD, Resident - Last Filed: 08/08/24 23:40>
*Critical Care Note
Total Time (30-74mins, 75-104mins- exclusive of procedures): Not Applicable
ED Attending Note
<Haylie Snyder MD, Resident - Last Filed: 08/08/24 23:40>
-
Portions of this chart may have been created with voice recognition software.� Occasional wrong word or��sound alike� substitutions may have occurred due to the inherent limitations of voice recognition software.
<Elma Elena, - Last Filed: 08/09/24 22:16>
ED Attending Note
Patient seen and examined by attending physician: Yes
I performed the substantive portion of visit, reviewed & personally made and approve the management plan that is documented in note by myself or SARAH.: Yes
I performed a history and physical exam of patient and discussed management with resident, I reviewed resident's note and agree with documented findings and plan of care.: Yes
ED Attending Note:
84-year-old male with history of CAD with CABG, hypertension, hyperlipidemia presenting for reassessment after a fall. Patient had a fall earlier today, missed a step going into his truck and fell to his left side, striking his head. Patient with
primary complaint of left sided rib pain and head pain/neck pain. Patient had a CT imaging of his head and C-spine, negative. He also had left-sided rib series which was negative for fracture. He reports since getting home he has been having
worsening left-sided rib pain. He also reports left knee pain, difficulty bearing weight on his knee. Additionally, has had difficulty urinating. Feels like he has to go, however only a little bit is coming out. Denies issues with urination or
his prostate in the past. He has not taken any narcotics for pain, took some Tylenol and Motrin prior to arrival. Vital signs are normal.
On exam patient is resting comfortably, no acute distress. No significant signs of head trauma. Mild tenderness to the right cervical neck, suspected cervical sprain. CT brain and C-spine reviewed from earlier today, negative. No indication to
repeat. Lungs are clear to auscultation. Patient does have generalized tenderness to the inferior aspect of the anterior left ribs. No crepitus. No ecchymosis. Suspect a contusion, however given worsening pain, will proceed with CT imaging to
evaluate for possible lung contusion or multiple rib fractures. Regarding left knee pain, no deformity or swelling. No erythema or warmth. Mild reproducible tenderness to the popliteal region. Possible tendinous injury. Will obtain x-ray
imaging. Regarding difficulty urinating, no tenderness to the abdomen, denying any pain to the abdomen. No significant distention. Bladder scan shows 370 cc. Possible reaction to pain. Will give attempt to urinate, and if unsuccessful, will
place Arredondo catheter. Will check urinalysis, CBC, CHEM
00:30-patient's kidney function within normal limits. CT of the chest without sign of fracture. There is possible aspiration pneumonia on the right side, however patient without respiratory symptoms or pain on the right side, without concern. No
fracture to the knee. Possible ligamentous injury. Will place in a knee immobilizer
01:00 -patient unable to ambulate and at home is unable to get him into the house, feels that he cannot go home. For this reason plan for admission for pain management, PT/OT consultation
Discharge Plan
Departure
Patient Disposition: Admit
Date of Disposition: 08/09/24
Time of Disposition: 22:15
Presentation/result/management discussed w/ accepting MD/DO: Hospitalist
Patient with high blood pressure during this ER visit?: No
Condition: Good
Discharge Problem:
Knee pain, left, Contusion of rib on left side, Acute urinary retention
Interventions
Interventions:
*Risk Screen - Suicide Last Done: 08/09/24 03:00
*General Assessment Last Done: 08/08/24 22:25
*Neglect/Abuse Screening Last Done: 08/08/24 22:25
ED- Fall Risk Assessment Last Done: 08/09/24 00:11
*ED COVID-19 Vaccine History Last Done: 08/09/24 03:00
*Nursing Disposition Last Done: 08/09/24 02:50
ED-Musculoskeletal Assessment Last Done: 08/08/24 23:35
ED- Neurological Assessment Last Done: 08/08/24 23:35
ED-Skin Assessment Last Done: 08/08/24 23:35
Discharge Date and Time
Discharge Date/Time: 08/09/24 02:50
[2024-08-08 23:32] VITALS: BP 123/90
[2024-08-08] MEDS: TORADOL 30 MG IV (23:38)
[2024-08-09 00:01] LABS: ALT (SGPT) 17 U/L (0-50); AST (SGOT) 22 U/L (17-59); Albumin 4.3 g/dl (3.5-5.0); Alkaline Phosphatase 63 U/L (38-126); Blood Urea Nitrogen 18 mg/dl (9-20); Calcium 9.2 mg/dl (8.4-10.2); Carbon Dioxide 24 mmol/L (22-30); Chloride 102 mmol/L (98-107); Glucose 100 mg/dl (70-99); Sodium 139 mmol/L (135-145); Total Bilirubin 0.7 mg/dl (0.2-1.3); Total Protein 6.7 g/dl (6.3-8.2); eGFR > 60.00
[2024-08-09 00:10] LABS: % Basophils 0.3 % (0-2); % Eosinophils 0.3 % (0-6); % Immature Granulocytes 0.5 % (0-0.5); % Lymphocytes 10.4 % (20.5-51.1); % Monocytes 14.2 % (1.7-9.3); % Neutrophils 74.3 % (42.2-75.2); Absolute Lymphocytes 0.6 10^3/uL (1.2-3.4); Absolute Monocytes 0.9 10^3/uL (0.1-0.6); Absolute Neutrophils 4.6 10^3/uL (1.4-6.5); Hematocrit 34.2 % (39.0-52.0); Hemoglobin 11.5 g/dL (13.0-18.0); Mean Corp Hgb Conc. 33.6 g/dL (33.0-37.0); Mean Corpuscular Hgb 36.6 pg (27.0-31.0); Mean Corpuscular Volume 108.9 fL (80.0-94.0); Nucleated Red Blood Cells % 0.5 % (-); Platelet Count 148 10^3/uL (130-400); Red Blood Cell Count 3.14 10^6/uL (4.70-6.10); Red Cell Dist. Width 13.9 % (11.5-14.5); White Blood Cell Count 6.1 10^3/uL (4.8-10.8)
[2024-08-09 00:58] LABS: Urine Albumin Negative (Neg - Trace); Urine Bilirubin Negative (Negative); Urine Character Clear (Clear); Urine Color Yellow; Urine Glucose Negative (Negative); Urine Ketone Negative (Negative); Urine Leukocyte Negative (Negative); Urine Nitrite Negative (Negative); Urine Occult Blood Negative (Negative); Urine Urobilinogen Negative (Neg - 1+)
[2024-08-09 03:00] VITALS: BP 124/64; BMI 30.2
[2024-08-09] MEDS: ULTRAM 50 MG PO ×3 (03:30→21:43)
--- NOTE | 2024-08-09 03:58 | DOWNTIME ---
There was a [employer] Client Director [employer] Downtime on 08/09/2024 from 0100 to 08/09/2024 at 0350. Downtime documentation of patient's care, including medication administrations, has been reconciled in the electronic record per guidelines. Refer to the
patient's paper chart under the miscellaneous tab to see printed paper medication records and downtime forms.
--- NOTE | 2024-08-09 04:05 | DOWNTIME ---
There was a [employer] Client Accounting Consultant Downtime on 08/09/2024 from 0100 to 08/09/2024 at 0350. Downtime documentation of patient's care, including medication administrations, has been reconciled in the electronic record per guidelines. Refer to the
patient's paper chart under the miscellaneous tab to see printed paper medication records and downtime forms.
--- NOTE | 2024-08-09 04:51 | PTCARENOTE ---
Patient arrived to unit around 03:30 via stretcher with dx of Ambulatory dysfunction. AAOX3. Pleasant and cooperative with care. PRN Tramadol given for left sided neck pain. Bed alarm applied. Oriented to unit. Call vuong within reach. No signs of
distress.
[2024-08-09 07:00] VITALS: BP 106/52
--- NOTE | 2024-08-09 07:27 | CONS.URO ---
Consultation
-
Date/Time Consultation Requested: 08/09/24 0700
Date/Time Consultation Performed: 08/09/830
Performing Provider: Kaz
Reason for Consultation: no indicated in consultation request
Medical History
History of Present Illness
2 ED visits on same day:
#1 84-year-old male with history CAD, hypertension, hyperlipidemia presenting to the emergency department via EMS following mechanical fall with associated posterior head strike.
#2 Pt notes decreased urine flow since discharge but does not feel bladder fullness and denies abdominal/flank pain.
Arredondo was placed for undeterminable volume.
Pt reports no antecedent hx.
Past Medical History
Past Medical History: Other (CAD, HTN, Hypercholesterolemia)
Social History
Personal:
Living: With Family
Employment: Retired
Family History
Family History: Reviewed & Not Pertinent
Allergies/Home Medications
Allergies
Allergy/AdvReac Type Severity Reaction Status Date / Time
clopidogrel bisulfate Allergy Unknown Collapsed Verified 02/08/24 10:20
[From Plavix] from
Muscle
pain/wkns,
Swelling
Hands, Ft,
Ankles
Home Medications
�Medication �Instructions �Recorded �Confirmed �Type
aspirin 81 mg tablet,delayed 81 mg PO DAILY 05/02/19 08/09/24 Rx
release
rosuvastatin 20 mg tablet 20 mg PO QPM #30 tabs 05/02/19 11/03/19 Rx
ticagrelor 90 mg tablet (Brilinta) 90 mg PO BID #60 tabs 05/02/19 11/03/19 Rx
acetaminophen 325 mg tablet 325 mg PO DAILYPRN PRN mild pain/ 11/03/19 08/09/24 History
headache
alprazolam 0.5 mg tablet 0.5 mg PO BIDPRN PRN anxiety 11/03/19 08/09/24 History
cholecalciferol (vitamin D3) 125 5,000 unit PO Q48H 11/03/19 08/09/24 History
mcg (5,000 unit) disintegrating
tablet
omeprazole 40 mg capsule,delayed 40 mg PO DAILY 11/03/19 11/03/19 History
release
furosemide 40 mg tablet 40 mg PO DAILY #5 tabs 11/12/19 Rx
metoprolol tartrate 25 mg tablet 25 mg PO BID #60 tabs 11/12/19 Rx
oxycodone 5 mg tablet 5 mg PO Q6HPRN PRN moderate - 11/12/19 Rx
severe pain #10 tabs
potassium chloride 20 mEq 20 meq PO DAILY #5 tabs 11/12/19 Rx
tablet,extended
release(part/cryst) (Klor-Con M)
Physical Exam
Vital Signs
Vital Signs
Temp Pulse Resp BP Pulse Ox
97.5 F 69 18 124/64 94
08/09/24 03:00 08/09/24 03:00 08/09/24 03:00 08/09/24 03:00 08/09/24 03:00
Lab / Testing Results
Laboratory Results
08/08/24 23:39
08/08/24 23:39
Physical Exam
adult male
General: No Apparent Distress
Genito-urinary: Arredondo Catheter (renny urine)
Skin: Warm
Neuro: Awake
Psych: Calm
Assessment / Plan
-
AUR associated with fall then ED visit
Rec: d/c Arredondo; Tamsulosin; PVR check; CIC vs Arredondo if voiding trial fails
Data Reviewed
-
Old Records: Reviewed
[2024-08-09] MEDS: BRILINTA 90 MG PO ×2 (08:52→21:40)
[2024-08-09] MEDS: LASIX 20 MG PO (08:52)
[2024-08-09] MEDS: HEPARIN 5000 UNITS SC ×2 (08:52→21:40)
[2024-08-09] MEDS: LOPRESSOR 25 MG PO ×2 (08:52→21:41)
[2024-08-09] MEDS: SENOKOT 8.6 MG PO ×2 (08:52→21:41)
[2024-08-09] MEDS: ASPIR LOW (ENTERIC COATED) 81 MG PO (08:52)
--- NOTE | 2024-08-09 10:00 | CM ---
CM reviewed chart, patient seen bedside, initial assessment completed. Patient resides with his in a single story home, two steps to enter. Patient has a scooter and walker at home, reports VN in the past after open heart surgery, denies SNF
history. Patient confirms PCP Mic Carter, pharmacy [facility], confirms prescription coverage. Patient denies insecurities at home. OBS status reviewed, CAMPA form provided, refused to sign, placed in chart. TT to Hospitalist for PT/OT
orders. CM will continue to follow for all discharge planning needs.
Plan; watch for PT/OT evals for additional recommendations.
[2024-08-09] MEDS: FLOMAX 0.4 MG PO (11:00)
--- NOTE | 2024-08-09 11:30 | PTCARENOTE ---
Arredondo removed as per order.
--- NOTE | 2024-08-09 12:39 | W.PN.HOSP.TC ---
Today's Communication/Plan
-
Lidocaine patch
Urology following AUR
Assessment / Plan
Assessment / Plan
84 y/o male with pmhx of HTN, HLP, CAD pressenting to the ED with pain with deep breaths, neck pain and decreased urinary flow.
# Trouble breathing due to Rib pain
-CT Chest : Probable nondisplaced fracture anterior left eighth rib, indeterminate acuity.
-Conservative management; lidocaine patch
-Zanaflex for spasm
# Acute urinary retention
-Appreciate urology input
-Urology recommended: d/c krishnan and PVR check
-Tamsulosin
-CIC versus Krishnan if fails voiding trial
# Knee pain
-PT/OT ordered
-Tylenol as needed
-Tramadol as needed
Chronic conditions:
#CAD-continue aspirin, continue Brilinta
#Hypertension-continue metoprolol
#Hyperlipidemia-continue rosuvastatin
#Gerd-continue omeprazole
#Anxiety-continue xanax
DVT prophylaxis: Heparin SC
Anticipated Discharge: 24 - 48 hours
Subjective/Interval History
-
Date of Service: August 09, 2024
no new complaints
Objective Data
-
Vital Signs:
Vital Signs
Temp Pulse Resp BP Pulse Ox
97.5 F 64 21 106/52 92
08/09/24 07:00 08/09/24 07:00 08/09/24 07:00 08/09/24 07:00 08/09/24 07:00
I&O
08/08/24 08/09/24 08/10/24
06:59 06:59 06:59
Intake Total 480 / 480
Balance 480 / 480
Review of Systems
-
History Source: Patient
Musculoskeletal: Reports Other (Left sided rib pain, left knee pain)
Neuro: Reports No Symptoms
Physical Exam
-
General: Well Developed and Well Nourished
HEENT: Normocephalic
Respiratory: Clear to Auscultation
Cardiac: Regular Rhythm and Murmur
GI: Soft and Nontender
Skin: Warm and Dry
Neuro: Awake, Alert, Oriented, Nonfocal/Grossly Intact, Central Nerve's Intact and No Sensory Deficits
Psych: Calm
Data Reviewed
-
Diagnostic Radiology: Report Reviewed by me and Discussed with Patient
CT Scan: Report Reviewed by me and Discussed with Physician
Labs: Labs Reviewed by me, Discussed with Physician and Discussed with Patient
[2024-08-09 15:00] VITALS: BP 124/61
[2024-08-09 15:35] VITALS: BP 143/66; PULSE 67
[2024-08-09 15:47] LABS: Iron 84 ug/dl (49-181)
[2024-08-09 15:56] LABS: Percent Saturation 23 % (20-50); Total Iron Binding Capacity 361 ug/dl (261-462)
[2024-08-09] MEDS: TYLENOL 650 MG PO (16:00)
[2024-08-09 16:07] VITALS: BP 143/66; PULSE 67
[2024-08-09 16:12] LABS: Ferritin 53.5 ng/ml (17.9-464.0)
[2024-08-09 16:43] LABS: Folate 13.7 ng/ml (2.76-20); Vitamin B12 513 pg/ml (239-931)
[2024-08-09] MEDS: CRESTOR 20 MG PO (17:27)
--- NOTE | 2024-08-09 20:15 | HPS.HSE ---
Family Physician
-
Family Physician: Mic Carter
Chief Complaint
-
Fall, urinary retention
History of Present Illness
This is an 84-year-old male with a past medical history significant for CAD, hypertension, hyperlipidemia who presents to the emergency department earlier today following a mechanical fall with negative workup and discharged home and now returns
again to the hospital for worsening pain and some urinary retention.
Patient had a mechanical fall at home with associated head strike. He lost his foot following backwards striking the back of his head on the cement. He is not on any blood thinners. There was no loss of consciousness. He complained of headache
right-sided neck pain and left-sided rib pain. Head CT, C-spine and chest x-ray shows no acute abnormalities. Skeletal survey was likewise negative. Patient was given some pain medications and discharged home.
He now returns to the ED with pain with deep inspiration, neck pain and decreased urine output. He denies chest pain at rest, lightheadedness, headache, hematuria nausea vomiting or diaphoresis. He also reports pain in the left knee and is unable
to bear weight. He notes decreased urine flow since discharge but does not feel full. Denies dysuria. He denies any flank pain or abdominal pain.
His vital signs shows a temp of 97.5, pulse of 73, blood pressure of 131/58 and satting at 93% on room air. ECG with normal sinus rhythm and no acute ST or T wave changes. Chest x-ray is unremarkable. Patient had a follow-up CT of the chest which
showed no fracture, and no lung injury.
Medical History
Past Medical History
Past Medical History: Reports CAD, HTN and Hypercholesterolemia
Past Surgical History: Reports Other
Social History
Tobacco: Non-smoker
Alcohol: Binge drinker
Drug: None
Personal:
Living: With Family
Employment: Retired
Family History
Family History: Not pertinent
Allergies / Home Medications
Allergies reflects when Allergies were last updated in [facility].
Home Medications with original date entered in [facility]
Allergy/Medication List:
Allergies
Allergy/AdvReac Type Severity Reaction Status Date / Time
clopidogrel bisulfate Allergy Unknown Collapsed Verified 02/08/24 10:20
[From Plavix] from
Muscle
pain/wkns,
Swelling
Hands, Ft,
Ankles
Home Medications
aspirin 81 mg tablet,delayed release 81 mg PO DAILY 05/02/19
rosuvastatin 20 mg tablet 20 mg PO QPM #30 tabs 05/02/19
ticagrelor 90 mg tablet (Brilinta) 90 mg PO BID #60 tabs 05/02/19
acetaminophen 325 mg tablet 325 mg PO DAILYPRN PRN mild pain/ headache 11/03/19
alprazolam 0.5 mg tablet 0.5 mg PO BIDPRN PRN anxiety 11/03/19
cholecalciferol (vitamin D3) 125 mcg (5,000 unit) disintegrating tablet 5,000 unit PO Q48H 11/03/19
omeprazole 40 mg capsule,delayed release 40 mg PO DAILY 11/03/19
furosemide 40 mg tablet 40 mg PO DAILY #5 tabs 11/12/19
metoprolol tartrate 25 mg tablet 25 mg PO BID #60 tabs 11/12/19
oxycodone 5 mg tablet 5 mg PO Q6HPRN PRN moderate - severe pain #10 tabs 11/12/19
potassium chloride 20 mEq tablet,extended release(part/cryst) (Klor-Con M) 20 meq PO DAILY #5 tabs 11/12/19
Review of Systems
-
History Source: Patient and Family
Constitutional: Reports No Symptoms
EENT: Reports No Symptoms
Respiratory: Reports Trouble Breathing
Cardiac: Reports Chest Pain
Abdomen/GI: Reports No Symptoms
: Reports Urgency
Musculoskeletal: Reports Joint Pain
Skin: Reports No Symptoms
Neurological: Reports No Symptoms
Endocrine: Reports No Symptoms
Hematologic/Lymphatic: Reports No Symptoms
Psych: Reports No Symptoms
Physical Exam
Vital Signs
Vital Signs
Temp Pulse Resp BP Pulse Ox
97.8 F 68 19 124/61 91
08/09/24 15:00 08/09/24 15:00 08/09/24 15:00 08/09/24 15:00 08/09/24 15:00
Physical Exam
General: Well Developed, Well Nourished and Pain
HEENT: NormoCephalic, Anicteric and Moist mucous membranes
Respiratory: Clear
Cardiac: S1/S2 and Regular Rhythm
Breast: Deferred by me
GI: Soft, Non Tender, Non Distended and Normal Bowel Sounds
Rectal: Deferred by Provider
Genito-urinary: Krishnan
Musculoskeletal: No Clubbing, No Cyanosis and No Edema
Skin: Warm
Neuro: AO x 3
Hematologic/Lymphatic: No Lymphadenopathy
Psych: Calm
Laboratory Results
-
08/08/24 23:39
08/08/24 23:39
Laboratory Results
Total Bilirubin 0.7 mg/dl (0.2-1.3) 08/08/24 23:39
AST 22 U/L (17-59) 08/08/24 23:39
ALT 17 U/L (0-50) 08/08/24 23:39
Alkaline Phosphatase 63 U/L (38-126) 08/08/24 23:39
Data Reviewed
-
Diagnostic Radiology: Report Reviewed by me
CT Scan: Report Reviewed by me
Lab Data: Labs Reviewed by me
Old Records: Reviewed
Impression/Plan
-
IMPRESSION:
84 M with mechanical fall and subsequent ambulatory dysfunction. No fractures, dislocations or internal injury. Complicated by acute urinary retention.
Ambulatory dysfunction
- admit to med/surg obs
- PT OT evaluation
- Pain control with acetaminophen, tramadol and 0.5 dilaudid for severe pain
- antiemetics
- tizanidine 2mg hs prn leg spasms
Urinary retention - acute, suspect secondary to pain. No hematuria, dysuria No known bph
- krishnan catheter placed in ED, attempt voiding trial in am
- trial of tamsulosin
- urology consult
CAD s/p PCI
- continue aspirin/ticacreglor and statin
- metoprolol 25 bid
- furosemide 40mg po daily
DVT PPX heparin 5000 sq q 12 h
Code status - Full Code
[2024-08-09] MEDS: XANAX 0.5 MG PO (21:43)
[2024-08-09 23:00] VITALS: BP 111/58
[2024-08-10] MEDS: ULTRAM 50 MG PO (05:49)
[2024-08-10 06:14] VITALS: BMI 30.4
[2024-08-10 07:00] VITALS: BP 121/55
[2024-08-10 07:11] LABS: % Basophils 0.4 % (0-2); % Immature Granulocytes 0.4 % (0-0.5); % Lymphocytes 10.6 % (20.5-51.1); % Monocytes 15.5 % (1.7-9.3); % Neutrophils 71.1 % (42.2-75.2); Absolute Eosinophils 0.1 10^3/uL (0-0.7); Absolute Lymphocytes 0.6 10^3/uL (1.2-3.4); Absolute Monocytes 0.9 10^3/uL (0.1-0.6); Absolute Neutrophils 3.9 10^3/uL (1.4-6.5); Hematocrit 32.3 % (39.0-52.0); Hemoglobin 11.1 g/dL (13.0-18.0); Mean Corp Hgb Conc. 34.4 g/dL (33.0-37.0); Mean Corpuscular Hgb 36.3 pg (27.0-31.0); Mean Corpuscular Volume 105.6 fL (80.0-94.0); Mean Platelet Volume 10.2 fL (7.4-10.4); Nucleated Red Blood Cells % 0.5 % (-); Platelet Count 133 10^3/uL (130-400); Red Blood Cell Count 3.06 10^6/uL (4.70-6.10); White Blood Cell Count 5.5 10^3/uL (4.8-10.8)
[2024-08-10 07:27] LABS: Blood Urea Nitrogen 16 mg/dl (9-20); Calcium 8.9 mg/dl (8.4-10.2); Carbon Dioxide 23 mmol/L (22-30); Chloride 100 mmol/L (98-107); Estimated Creatinine Clearance 116 ml/min; Glucose 94 mg/dl (70-99); Potassium 3.9 mmol/L (3.5-5.1); Sodium 137 mmol/L (135-145); eGFR > 60.00
--- NOTE | 2024-08-10 09:03 | W.PN.HOSP.TC ---
Addendum entered and electronically signed by Gregorio Lucas DO 08/10/24 13:06:
PLEASE IGNORE INITIAL ADDENDUM IT WAS PLACED IN WRONG CHART
I have independently evaluated the patient at the bedside. I agree with all documentation was otherwise specified
Patient passed trial of void yesterday. Remains on tamsulosin daily. Will continue to monitor for recurrent urinary retention.
Analgesia for his nondisplaced rib fracture and left knee discomfort is adequate with lidocaine patch and Tylenol. Will continue to monitor.
SNF recommended by physical therapy
Medically stable to start authorization for SNF
Original Note:
Today's Communication/Plan
-
conservative mgmt; working on d/c, need SNF per PT
Assessment / Plan
Assessment / Plan
84 y/o male with pmhx of HTN, HLP, CAD pressenting to the ED with pain with deep breaths, neck pain and decreased urinary flow.
# Trouble breathing due to Rib pain
-Reported mechanical fall 1 day prior to admission
-CT Chest : Probable nondisplaced fracture anterior left eighth rib, indeterminate acuity.
-Conservative management; lidocaine patch
-Zanaflex for leg spasm
-reports improvement in breathing
# Acute urinary retention- resolved
-Appreciate urology input
-Tamsulosin
# Ambulatory dysfunction due to left knee pain
-PT recommended SNF at d/c given limited mobility secondary to left knee pain
-Tylenol as needed
-Tramadol as needed
#CAD s/p PCI
-continue aspirin/ticacreglor and statin
-metoprolol 25 bid
-furosemide 40mg po daily
Chronic conditions:
#CAD-continue aspirin, continue Brilinta
#Hypertension-continue metoprolol
#Hyperlipidemia-continue rosuvastatin
#Gerd-continue omeprazole
#Anxiety-continue xanax
DVT prophylaxis: Heparin SC
Anticipated Discharge: Today
Subjective/Interval History
-
Date of Service: August 10, 2024
interval events: continues to have pain in the ribcage and left knee, overall better than yesterday.
Objective Data
-
Labs:
Laboratory Results
08/10/24
06:35
WBC 5.5
Hgb 11.1 L
Hct 32.3 L
Plt Count 133
Sodium 137
Potassium 3.9
Chloride 100
Carbon Dioxide 23
BUN 16
Creatinine 0.6 L
Glucose 94
Calcium 8.9
Vital Signs:
Vital Signs
Temp Pulse Resp BP Pulse Ox
97.9 F 67 21 121/55 93
08/10/24 07:00 08/10/24 07:00 08/10/24 07:00 08/10/24 07:00 08/10/24 07:00
I&O
08/09/24 08/10/24 08/11/24
06:59 06:59 06:59
Intake Total 480 / 480 720 / 720
Output Total 1775 / 1775
Balance 480 / 480 -1055 / -1055
Review of Systems
-
History Source: Patient
Genitourinary: Reports No Symptoms
Musculoskeletal: Reports Other (Left sided rib pain, left knee pain)
Neuro: Reports No Symptoms
Physical Exam
-
General: Well Developed and Well Nourished
HEENT: Normocephalic
Respiratory: Clear to Auscultation
Cardiac: Regular Rhythm and Murmur
GI: Soft and Nontender
Skin: Warm and Dry
Neuro: Awake, Alert, Oriented, Nonfocal/Grossly Intact, Central Nerve's Intact and No Sensory Deficits
Psych: Calm
Data Reviewed
-
Diagnostic Radiology: Report Reviewed by me and Discussed with Patient
CT Scan: Report Reviewed by me and Discussed with Physician
Labs: Labs Reviewed by me, Discussed with Physician and Discussed with Patient
[2024-08-10] MEDS: PROTONIX 40 MG PO (09:50)
[2024-08-10] MEDS: BRILINTA 90 MG PO (09:50)
[2024-08-10] MEDS: SENOKOT 8.6 MG PO (09:50)
[2024-08-10] MEDS: FLOMAX 0.4 MG PO (09:50)
[2024-08-10] MEDS: ASPIR LOW (ENTERIC COATED) 81 MG PO (09:50)
[2024-08-10] MEDS: LOPRESSOR 25 MG PO (09:51)
[2024-08-10] MEDS: LASIX 20 MG PO (09:51)
[2024-08-10] MEDS: LIDOCAINE 4% PATCH 2 PATCH TOPICAL (09:51)
[2024-08-10] MEDS: HEPARIN 5000 UNITS SC (09:51)
--- NOTE | 2024-08-10 13:04 | CM ---
Patient seen bedside, discussed PT recommendations of SNF. Patient inquiring about [facility], CM discussed PT currently recommending skilled rehab for patient. Patient requesting CM return when visits. CM met with patient and once present,
discussed recommendations from PT, mod assist x2. not agreeable for patient to go to rehab, would prefer patient return home with [facility] as patient has had [facility] in past. Patient reports he resides on first floor, has a walker and scooter at home,
son lives nearby to assist patient. requesting neurology evaluation, CM will relay to resident, relayed to patient and this may need to be done outpatient. reports she will provide transportation home upon discharge. CM will continue
to follow for all discharge planning needs.
Plan; refusing SNF, agreeable to [facility], to transport home.
--- NOTE | 2024-08-10 14:23 | W.DCSUMMARY ---
Documented by User: Abram Magana MD, Resident 08/10/24 14:31
Discharge Summary
Discharge Data
Date of Admission: 08/09/24
Date of Discharge: 08/10/24
-
Pending Results: No
Hospital Course
Discharging Physician : Abram Magana MD ; Gregorio Lucas DO
Disposition : Home with VN
Primary care physician : Mic Carter
Principal Discharge diagnosis : Acute urinary retention, left knee pain, left sided lower rib pain
Chronic Discharge diagnosis : CAD s/p PCI , CAD, hypertension, hyperlipidemia, GERD, anxiety
Hospital Course : 84 y/o male with pmhx of HTN, HLP, CAD pressenting to the ED with pain with deep breaths, neck pain and decreased urinary flow after a mechanical fall. Arredondo was placed and urology was consulted. Per recommendations from the
urology tamsulosin was started and voiding trial recommended. His urinary symptoms resolved next day. Lidocaine patch recommended for his left knee pain and in pain in the left-sided lower rib cage. He noticed some improvement in the pain as
well. It was determined that patient is medically stable for discharge at this time. Recommended follow-up with the family doctor and urology for further recommendation and discuss use of tamsulosin. Per patient's request name of the neurologist
was also provided to discuss an evaluation for recurrent falls.
Important imaging findings : Rib/Chest Xray: No definite radiographic evidence of acute displaced left rib fracture. No pneumothorax.
Findings suspicious for possible mild congestive heart failure and the proper clinical setting.
Chest CT:
IMPRESSION:
1. Moderate changes of pulmonary fibrosis, nonspecific pattern. No superimposed acute process identified.
2. Small hiatal hernia.
3. Coronary and aortic atherosclerosis. Ectasia ascending aorta, 4.3 cm diameter at the mid ascending aorta.
4. Probable nondisplaced fracture anterior left eighth rib, indeterminate acuity. No displaced rib fracture. No pneumothorax. Multiple likely chronic compression deformities as above.
5. Cholelithiasis.
Xray knee:No acute fracture or malalignment identified. Small knee joint effusion. Moderate osteoarthritic changes.
Discharge Plan
-
Patient Disposition: Home with Home Care
Discharge Diagnosis/Procedures: Acute urinary retention, rib and left knee pain
Condition: Good
Diet: Low Cholesterol
Activity: No restrictions and As tolerated
Driving Restrictions: As prior to admission
Bathing Restrictions: None
Other Services: VN, PT and OT
Referrals:
David Mccurdy MD [Active] - in two to three weeks
Dwayne Gibson MD [Active] - in two to three weeks
Mic Carter MD [Family Provider] - in less than 1 week
Additional Discharge Medication Instructions: Lidocaine 4% patch, use 1-2 patches on left lower rib cage and left knee. Remove after 12 hrs. wait for another 12 hours before reapplication
Take tamsulosin 0.4 mg capsule daily
Follow-up with urology or family doctor for further recommendation on tamsulosin.
Follow-up with neurology to discuss recurrent falls.
Prescriptions:
New
lidocaine 4 % Adhesive Patch,Medicated
2 patch topical DAILY Qty: 10 0RF
Rx Instructions:
can use one patch on the left lower ribs and one on the left knee
tamsulosin 0.4 mg Capsule
0.4 mg PO DAILY Qty: 30 0RF
Continued
acetaminophen 325 MG tablet
325 mg PO DAILYPRN PRN (Reason: mild pain/ headache)
alprazolam 0.5 MG tablet
0.5 mg PO BIDPRN PRN (Reason: anxiety)
amlodipine [Norvasc] 10 mg Tablet
10 mg PO DAILY
rosuvastatin 20 MG tablet
40 mg PO QPM
cyanocobalamin (vitamin B-12) 1,000 mcg Tablet
1,000 mcg PO Q48H
cholecalciferol (vitamin D3) [Vitamin D3] 125 mcg (5,000 unit) Tablet
125 mcg PO Q48H
No Action
aspirin 81 MG tablet,delayed release (DR/EC)
81 mg PO DAILY
Discharge Orders:
Discharge Patient (As Directed); Ordered 08/10/24
Ordered By: Abram Magana
Discharge Date and Time
Print Language: ESTONIAN

Documented by User: Gregorio Lucas DO 08/10/24 14:43
Discharge Summary
Discharge Data
Date of Admission: 08/09/24
Date of Discharge: 08/10/24
Discharge Plan
-
Patient Disposition: Home with Home Care
Discharge Diagnosis/Procedures: Acute urinary retention, rib and left knee pain
Condition: Good
Diet: Low Cholesterol
Activity: No restrictions and As tolerated
Driving Restrictions: As prior to admission
Bathing Restrictions: None
Other Services: VN, PT and OT
Referrals:
David Mccurdy MD [Active] - in two to three weeks
Dwayne Gibson MD [Active] - in two to three weeks
Mic Carter MD [Family Provider] - in less than 1 week
Additional Discharge Medication Instructions: Lidocaine 4% patch, use 1-2 patches on left lower rib cage and left knee. Remove after 12 hrs. wait for another 12 hours before reapplication
Take tamsulosin 0.4 mg capsule daily
Follow-up with urology or family doctor for further recommendation on tamsulosin.
Follow-up with neurology to discuss recurrent falls.
Prescriptions:
New
lidocaine 4 % Adhesive Patch,Medicated
2 patch topical DAILY Qty: 10 0RF
Rx Instructions:
can use one patch on the left lower ribs and one on the left knee
tamsulosin 0.4 mg Capsule
0.4 mg PO DAILY Qty: 30 0RF
Continued
acetaminophen 325 MG tablet
325 mg PO DAILYPRN PRN (Reason: mild pain/ headache)
alprazolam 0.5 MG tablet
0.5 mg PO BIDPRN PRN (Reason: anxiety)
amlodipine [Norvasc] 10 mg Tablet
10 mg PO DAILY
rosuvastatin 20 MG tablet
40 mg PO QPM
cyanocobalamin (vitamin B-12) 1,000 mcg Tablet
1,000 mcg PO Q48H
cholecalciferol (vitamin D3) [Vitamin D3] 125 mcg (5,000 unit) Tablet
125 mcg PO Q48H
No Action
aspirin 81 MG tablet,delayed release (DR/EC)
81 mg PO DAILY
Discharge Orders:
Discharge Patient (As Directed); Ordered 08/10/24
Ordered By: Abram Magana
Discharge Date and Time
Print Language: ESTONIAN
[2024-08-10 15:00] VITALS: BP 166/69
== END 2024-08-10 17:26 | disposition home health service (06) ==
LOC: 4 WEST ACU 03:43
PROVIDERS: ADMITTING PHYSICIAN Internal Medicine; ATTENDING PHYSICIAN Internal Medicine; CONSULT PHYSICIAN Specialist; EMERGENCY PHYSICIAN Student in an Organized Health Care Education/Training Program; FAMILY PHYSICIAN Internal Medicine
DX: R33.9 Retention of urine, unspecified (principal); S22.32XA Fracture of one rib, left side, initial encounter for closed fracture; S20.212A Contusion of left front wall of thorax, initial encounter; R51.9 Headache, unspecified; I11.0 Hypertensive heart disease with heart failure; I50.33 Acute on chronic diastolic (congestive) heart failure; I25.10 Atherosclerotic heart disease of native coronary artery without angina pectoris; R07.81 Pleurodynia; M54.2 Cervicalgia; E78.00 Pure hypercholesterolemia, unspecified; I73.9 Peripheral vascular disease, unspecified; M17.12 Unilateral primary osteoarthritis, left knee; R29.6 Repeated falls; K21.9 Gastro-esophageal reflux disease without esophagitis; F41.9 Anxiety disorder, unspecified; Q61.02 Congenital multiple renal cysts; K80.20 Calculus of gallbladder without cholecystitis without obstruction; I70.0 Atherosclerosis of aorta; K44.9 Diaphragmatic hernia without obstruction or gangrene; J84.10 Pulmonary fibrosis, unspecified; W01.198A Fall on same level from slipping, tripping and stumbling with subsequent striking against other object, initial encounter; Y93.89 Activity, other specified; Y92.9 Unspecified place or not applicable; Z95.1 Presence of aortocoronary bypass graft; Z79.02 Long term (current) use of antithrombotics/antiplatelets; Z79.82 Long term (current) use of aspirin; Z95.5 Presence of coronary angioplasty implant and graft; Z95.2 Presence of prosthetic heart valve
CPT/HCPCS: 71250; 73560; 80048; 80053; 81003; 82607; 82728; 82746; 83540; 83550; 85025; 97163; 97167; 99285; G0378

== ENCOUNTER 2024-09-18 19:19 | Inpatient (IN) | payer OTHER, SELFPAY ==
[2024-09-18 14:00] VITALS: BP 130/61
--- NOTE | 2024-09-18 14:04 | ED.GENMED ---
ED Provider Triage
<Mega Sepulveda Jr., PA-C - Last Filed: 09/18/24 14:05>
-
Patient seen by provider in Triage?: Seen in Triage
Attestation: A medical screening examination has been initiated by a qualified medical provider. Based on the assessment performed at this time, it has been determined that an emergent medical condition may exist and the patient has been informed
that further medical evaluation and possible additional diagnostic testing may be needed.
HPI:84year-old male presenting to the emergency department today with concerns of shortness of breath over the past few days here patient in no distress with pulse ox in the low 90s and high 80s. Initial labs x-ray ordered for further assessment.
GENERAL: Alert , in no apparent distress
EYE: No visual abnormalities.
NECK: Trachea midline
ENT: No visible abnormalities.
LUNGS: No acute respiratory distress
NEUROLOGICAL: Alert and oriented
SKIN: Skin intact. No visible changes.
MUSCULOSKELETAL: Moving extremities normally
PSYCH: Normal and appropriate interaction.
This is a medical evaluation conducted in person to initiate diagnostic evaluation and provide initial therapeutics. Please see further documentation by the treating clinician.
History of Present Illness
<Mega Sepulveda Jr., PA-C - Last Filed: 09/18/24 14:05>
General
Chief Complaint: Breathing Problem
Time Seen by Provider: 09/18/24 17:09
<Kennedy Sheikh MD - Last Filed: 09/18/24 17:36>
General
Source: patient and spouse
Exam Limitations: none
History of Present Illness
History of Present Illness:
84-year-old male describing progressive shortness of breath with exertion and chest tightness with exertion. Has had some mild shortness of breath with exertion for months but much worse the last 3 to 4 days. Also noted some leg swelling and
weight gain. Currently asymptomatic at rest. Symptoms are fairly significant and even walking around his house the symptoms will occur
Past History
<Mega Sepulveda Jr., PA-C - Last Filed: 09/18/24 14:05>
Past History
ED Past Medical History: CAD, HTN, Hypercholesterolemia, Other and Other (PVD)
Social History
Tobacco: Non-smoker
Alcohol: Binge drinker
Drug: None
Personal:
Living: with family
Employment: Retired
Family History
Family History: Other (Noncontributory)
<Kennedy Sheikh MD - Last Filed: 09/18/24 17:36>
Past History
ED Past Medical History: Valvular disease
ED Past Surgical History: Cardiac and Other (Vascular surgery)
Review of Systems
<Kennedy Sheikh MD - Last Filed: 09/18/24 17:36>
Review of Systems
All Other Systems: Not applicable
Constitutional: Reports weight gain
Respiratory: Reports trouble breathing
Cardiac: Reports chest pain
Phy Exam
<Kennedy Sheikh MD - Last Filed: 09/18/24 17:36>
Physical Exam
Physical Exam:
GENERAL: Alert and oriented in no apparent distress
EYE: Orbits normal.
NECK: Supple, no significant adenopathy.
ENT: Pharynx without erythema
CARDIAC: Regular rate and rhythm with harsh midsystolic murmur
LUNGS: No respiratory distress at rest. Rales in the bases bilaterally
ABDOMEN: Soft, without focal tenderness or distention
NEUROLOGICAL: Alert and oriented , grossly non-focal
SKIN: Warm and dry, no rash or lesion, no discoloration, skin intact.
MUSCULOSKELETAL: Mild bilateral lower extremity pitting edema
PSYCH: Normal and appropriate interaction.
Scores
<Kennedy Sheikh MD - Last Filed: 09/18/24 17:36>
Heart Failure Risk
Heart Failure Risk Score: Yes
History of Stroke or TIA: No
History of intubation for respiratory distress: No
Heart rate on ED arrival >/= 110: No
SaO2 <90% on arrival on room air: No
HR >/=110 during 3min walk test (or too ill to perform test): Yes
ECG has acute ischemic changes: No
Urea >/=12mmol/L (BUN 33.6mg/dL): No
Serum CO2>/=35mmol/L: No
Troponin I or T elevated to [place] Level (0.4mg/dL): No
NT-proBNP >/=5,000ng/L (5,000pg/ml): No
HF Risk Score: 2
Admission Status: MEDIUM RISK 9.2% Consider observation or discharge to home with homecare & f/u visit to PCP/Multimedia Developer, or SNF for treatment
Course
<Mega Sepulveda Jr., PA-C - Last Filed: 09/18/24 14:05>
Orders/Labs/Results
Orders:
Orders
09/18/24 13:51
Electrocardiogram (*1) Urgent
Reason for Study: Shortness of Breath
EKG- Treatment ONCE
09/18/24 14:02
CR Chest - 2 Views Urgent
Comment:
Reason For Exam: sob
09/18/24 14:14
Complete Blood Count/With Diff Urgent
Comprehensive Metabolic Panel Urgent
Magnesium Urgent
NT-proBNP Urgent
Troponin I Urgent
09/18/24 17:26
IV Insert/Care/Rem.- Treatment PRN
Furosemide [Lasix] 40 mg IV NOW STA
09/18/24 17:27
Cardiac Monitoring- Treatment ONCE
Abnormal Lab Results
09/18/24
14:14
WBC 3.9 L 10^3/uL
(4.8-10.8)
RBC 3.12 L 10^6/uL
(4.70-6.10)
Hgb 11.0 L g/dL
(13.0-18.0)
Hct 32.7 L %
(39.0-52.0)
MCV 104.8 H fL
(80.0-94.0)
MCH 35.3 H pg
(27.0-31.0)
RDW 14.7 H %
(11.5-14.5)
Absolute Lymphs (auto) 0.7 L 10^3/uL
(1.2-3.4)
Absolute Monos (auto) 0.7 H 10^3/uL
(0.1-0.6)
Lymphocytes % 18.5 L %
(20.5-51.1)
Monocytes % 16.7 H %
(1.7-9.3)
09/18/24 14:14
09/18/24 14:14
Vital Signs
Initial and Last Documented VS:
Initial Vital Signs
Temp Pulse Resp BP Pulse Ox
98.8 F 65 18 130/61 90
09/18/24 14:00 09/18/24 14:00 09/18/24 14:00 09/18/24 14:00 09/18/24 14:00
Last Documented Vital Signs
Temp Pulse Resp BP Pulse Ox
98.8 F 61 18 128/59 96
09/18/24 14:00 09/18/24 16:01 09/18/24 16:01 09/18/24 16:01 09/18/24 16:01
<Kennedy Sheikh MD - Last Filed: 09/18/24 17:36>
Orders/Labs/Results
Orders:
Orders
09/18/24 13:51
Electrocardiogram (*1) Urgent
Reason for Study: Shortness of Breath
EKG- Treatment ONCE
09/18/24 14:02
CR Chest - 2 Views Urgent
Comment:
Reason For Exam: sob
09/18/24 14:14
Complete Blood Count/With Diff Urgent
Comprehensive Metabolic Panel Urgent
Magnesium Urgent
NT-proBNP Urgent
Troponin I Urgent
09/18/24 17:26
IV Insert/Care/Rem.- Treatment PRN
Furosemide [Lasix] 40 mg IV NOW STA
09/18/24 17:27
Cardiac Monitoring- Treatment ONCE
Abnormal Lab Results
09/18/24
14:14
WBC 3.9 L 10^3/uL
(4.8-10.8)
RBC 3.12 L 10^6/uL
(4.70-6.10)
Hgb 11.0 L g/dL
(13.0-18.0)
Hct 32.7 L %
(39.0-52.0)
MCV 104.8 H fL
(80.0-94.0)
MCH 35.3 H pg
(27.0-31.0)
RDW 14.7 H %
(11.5-14.5)
Absolute Lymphs (auto) 0.7 L 10^3/uL
(1.2-3.4)
Absolute Monos (auto) 0.7 H 10^3/uL
(0.1-0.6)
Lymphocytes % 18.5 L %
(20.5-51.1)
Monocytes % 16.7 H %
(1.7-9.3)
09/18/24 14:14
09/18/24 14:14
Vital Signs
Initial and Last Documented VS:
Initial Vital Signs
Temp Pulse Resp BP Pulse Ox
98.8 F 65 18 130/61 90
09/18/24 14:00 09/18/24 14:00 09/18/24 14:00 09/18/24 14:00 09/18/24 14:00
Last Documented Vital Signs
Temp Pulse Resp BP Pulse Ox
98.8 F 61 18 128/59 96
09/18/24 14:00 09/18/24 16:01 09/18/24 16:01 09/18/24 16:01 09/18/24 16:01
<Kennedy Sheikh MD - Last Filed: 09/18/24 17:36>
MDM/Problems Addressed
Differential Diagnosis Includes:
Most consistent with some CHF. Close in the bases. Weight gain. Lower extremity edema. Mildly elevated proBNP. With exertional this could be all valvular related or ischemic related. Given the severity of symptoms with any exertion, patient
warrants inpatient management
<Kennedy Sheikh MD - Last Filed: 09/18/24 17:36>
*Radiology
Radiology exam reviewed: radiology read reviewed (Increased interstitial markings. Possible pulmonary fibrosis. Possible CHF)
*Pulse Oximetry
Patient hypoxic: no
*EKG
Interpreted by ED Provider?: Yes
Comparison EKG: changes noted
Heart Rate: 67
Rate: normal
Rhythm: sinus
[place]: normal axis
Interval: normal interval
QRS Pattern: left vent hypertrophy
Ischemia: non-specific ST changes
*Critical Care Note
Total Time (30-74mins, 75-104mins- exclusive of procedures): Not Applicable
Data Reviewed
Review of Other/Old Records Reveals: Labs, Records, Testing and Other (Echocardiogram: Mild left ventricular hypertrophy. Slight decreased ejection fraction of 54 thickened mitral leaflets mild to moderate aortic stenosis mild pulmonary
hypertension)
ED Attending Note
<Mega Sepulveda Jr., PA-C - Last Filed: 09/18/24 14:05>
-
Portions of this chart may have been created with voice recognition software.� Occasional wrong word or��sound alike� substitutions may have occurred due to the inherent limitations of voice recognition software.
Discharge Plan
Departure
Patient Disposition: Admit
Date of Disposition: 09/18/24
Time of Disposition: 17:31
Presentation/result/management discussed w/ accepting MD/DO: Hospitalist
Discharge Problem:
Exertional shortness of breath/chest amilcar, CHF, Ischemic versus valvular related
Prescriptions:
No Action
acetaminophen 325 MG tablet
325 mg PO DAILYPRN PRN (Reason: mild pain/ headache)
alprazolam 0.5 MG tablet
0.5 mg PO BIDPRN PRN (Reason: anxiety)
amlodipine [Norvasc] 10 mg Tablet
10 mg PO DAILY
rosuvastatin 20 MG tablet
40 mg PO QPM
cyanocobalamin (vitamin B-12) 1,000 mcg Tablet
1,000 mcg PO Q48H
cholecalciferol (vitamin D3) [Vitamin D3] 125 mcg (5,000 unit) Tablet
125 mcg PO Q48H
lidocaine 4 % Adhesive Patch,Medicated
2 patch topical DAILY Qty: 10 0RF
Rx Instructions:
can use one patch on the left lower ribs and one on the left knee
tamsulosin 0.4 mg Capsule
0.4 mg PO DAILY Qty: 30 0RF
aspirin 81 MG tablet,delayed release (DR/EC)
81 mg PO DAILY
Discharge Date and Time
Print Language: NIGERIEN
[2024-09-18 14:26] LABS: % Basophils 0.5 % (0-2); % Eosinophils 0.5 % (0-6); % Immature Granulocytes 0.3 % (0-0.5); % Lymphocytes 18.5 % (20.5-51.1); % Monocytes 16.7 % (1.7-9.3); % Neutrophils 63.5 % (42.2-75.2); Absolute Lymphocytes 0.7 10^3/uL (1.2-3.4); Absolute Monocytes 0.7 10^3/uL (0.1-0.6); Absolute Neutrophils 2.5 10^3/uL (1.4-6.5); Hematocrit 32.7 % (39.0-52.0); Mean Corp Hgb Conc. 33.6 g/dL (33.0-37.0); Mean Corpuscular Hgb 35.3 pg (27.0-31.0); Mean Corpuscular Volume 104.8 fL (80.0-94.0); Mean Platelet Volume 9.7 fL (7.4-10.4); Nucleated Red Blood Cells % 0.8 % (-); Platelet Count 131 10^3/uL (130-400); Red Blood Cell Count 3.12 10^6/uL (4.70-6.10); Red Cell Dist. Width 14.7 % (11.5-14.5); White Blood Cell Count 3.9 10^3/uL (4.8-10.8)
[2024-09-18 14:41] LABS: ALT (SGPT) 12 U/L (0-50); AST (SGOT) 17 U/L (17-59); Albumin 3.9 g/dl (3.5-5.0); Alkaline Phosphatase 94 U/L (38-126); Blood Urea Nitrogen 13 mg/dl (9-20); Calcium 8.8 mg/dl (8.4-10.2); Carbon Dioxide 27 mmol/L (22-30); Chloride 101 mmol/L (98-107); Glucose 93 mg/dl (70-99); Magnesium 1.8 mg/dl (1.6-2.3); Potassium 4.2 mmol/L (3.5-5.1); Sodium 137 mmol/L (135-145); Total Bilirubin 0.8 mg/dl (0.2-1.3); Total Protein 6.3 g/dl (6.3-8.2); eGFR > 60.00
[2024-09-18 14:53] LABS: NT-proBNP 1070 pg/ml; Troponin I 0.014 ng/ml
[2024-09-18 16:01] VITALS: BP 128/59
--- NOTE | 2024-09-18 17:53 | HPS.HSE ---
Family Physician
-
Family Physician: Mic Carter
Chief Complaint
-
SoB
History of Present Illness
84M HX CAD s/p PCI , nl LVEF 60% , hypertension, hyperlipidemia, GERD, anxiety sen at ER;
- concerns of shortness of breath over the past few days here patient in no distress
- pulse ox in the low 90s and high 80s.
Medical History
Past Medical History
Past Medical History: Reports CAD, HTN and Hypercholesterolemia
Past Surgical History: Reports Other
Social History
Tobacco: Non-smoker
Alcohol: Binge drinker
Drug: None
Personal:
Living: With Family
Employment: Retired
Family History
Family History: Not pertinent
Allergies / Home Medications
Allergies reflects when Allergies were last updated in [facility].
Home Medications with original date entered in [facility]
Allergy/Medication List:
Allergies
Allergy/AdvReac Type Severity Reaction Status Date / Time
clopidogrel bisulfate Allergy Unknown Collapsed Verified 02/08/24 10:20
[From Plavix] from
Muscle
pain/wkns,
Swelling
Hands, Ft,
Ankles
Home Medications
aspirin 81 mg tablet,delayed release 81 mg PO DAILY 05/02/19
rosuvastatin 20 mg tablet 20 mg PO QPM #30 tabs 05/02/19
ticagrelor 90 mg tablet (Brilinta) 90 mg PO BID #60 tabs 05/02/19
acetaminophen 325 mg tablet 325 mg PO DAILYPRN PRN mild pain/ headache 11/03/19
alprazolam 0.5 mg tablet 0.5 mg PO BIDPRN PRN anxiety 11/03/19
cholecalciferol (vitamin D3) 125 mcg (5,000 unit) disintegrating tablet 5,000 unit PO Q48H 11/03/19
omeprazole 40 mg capsule,delayed release 40 mg PO DAILY 11/03/19
furosemide 40 mg tablet 40 mg PO DAILY #5 tabs 11/12/19
metoprolol tartrate 25 mg tablet 25 mg PO BID #60 tabs 11/12/19
oxycodone 5 mg tablet 5 mg PO Q6HPRN PRN moderate - severe pain #10 tabs 11/12/19
potassium chloride 20 mEq tablet,extended release(part/cryst) (Klor-Con M) 20 meq PO DAILY #5 tabs 11/12/19
Review of Systems
-
Constitutional: Reports No Symptoms
EENT: Reports No Symptoms
Respiratory: Reports See HPI and Trouble Breathing
Cardiac: Reports No Symptoms
Abdomen/GI: Reports No Symptoms
: Reports No Symptoms
Musculoskeletal: Reports No Symptoms
Skin: Reports No Symptoms
Neurological: Reports No Symptoms
Endocrine: Reports No Symptoms
Hematologic/Lymphatic: Reports No Symptoms
Psych: Reports No Symptoms
Physical Exam
Vital Signs
Vital Signs
Temp Pulse Resp BP Pulse Ox
98.8 F 61 18 128/59 96
09/18/24 14:00 09/18/24 16:01 09/18/24 16:01 09/18/24 16:01 09/18/24 16:01
Physical Exam
General: No Apparent Distress
HEENT: Anicteric and Moist mucous membranes
Cardiac: S1/S2 and Regular Rhythm; No Tachycardia
Breast: Deferred by me
GI: Soft, Non Tender and Non Distended
Rectal: Deferred by Provider
Musculoskeletal: Other (b/l LE trace edema )
Skin: Warm and Dry
Neuro: AO x 3
Psych: Calm
Laboratory Results
-
09/18/24 14:14
09/18/24 14:14
Laboratory Results
Total Bilirubin 0.8 mg/dl (0.2-1.3) 09/18/24 14:14
AST 17 U/L (17-59) 09/18/24 14:14
ALT 12 U/L (0-50) 09/18/24 14:14
Alkaline Phosphatase 94 U/L (38-126) 09/18/24 14:14
Troponin I 0.014 ng/ml 09/18/24 14:14
Data Reviewed
-
Lab Data: Labs Reviewed by me
Old Records: Reviewed
Impression/Plan
-
Reviewed VS: unremarkable
Vital Signs
Temp Pulse Resp BP Pulse Ox
98.8 F 61 18 128/59 96
09/18/24 14:00 09/18/24 16:01 09/18/24 16:01 09/18/24 16:01 09/18/24 16:01
Laboratory Tests
08/10/24 09/18/24
06:35 14:14
WBC 5.5 3.9 L
Hgb 11.1 L 11.0 L
Troponin I 0.014
Ddr-B-Raeokfylmxc Pept 1070
09/18/24 CXR:
No pulmonary interstitial markings again seen most likely chronic such as pulmonary fibrosis.
EKG
NORMAL SINUS RHYTHM
LEFT VENTRICULAR HYPERTROPHY WITH QRS WIDENING ( R in aVL , Javi product )
ABNORMAL ECG
WHEN COMPARED WITH ECG OF 27-NOV-2019 10:59,
NONSPECIFIC T WAVE ABNORMALITY NO LONGER EVIDENT IN INFERIOR LEADS
NONSPECIFIC T WAVE ABNORMALITY, IMPROVED IN LATERAL LEADS
Confirmed by FARSHAD ARMENDARIZ, ANIA ([id number]) on 09/18/2024 2:10:10 PM
01/24/21 TTE
1. LVEF 60%. Mild concentric LVH.
2. Right ventricle: Normal
3. Atria: Normal
4. Mitral valve: Mild mitral regurgitation
5. Aortic valve: Thickened aortic valve leaflets. Restricted mobility. The
mean aortic valve gradient is 14 mmHg and the estimated aortic valve area is 1.6 cm2. Mild aortic insufficiency.
6. Tricuspid valve: Trace tricuspid regurgitation. Estimated pulmonary artery systolic pressures are 31 mmHg
7. When compared to the most recent echocardiogram from 05/01/19 there has been no significant change
Last hospitalist admission: Date of Admission: 08/09/24 - Date of Discharge: 08/10/24
Principal Discharge diagnosis :
Acute urinary retention, left knee pain, left sided lower rib pain
ASSESSMENT & PLAN
SoB with elevated proBNP DDX; Acute HF vs Angina equivalent or Viral
No evidence of CHF in CXR
- check Covid and influenza
- s/p IV Lasix 40 at ER- f/u clinical response
- hold of further diuresis
- DCA card consult
No CP
NEG TPNI
CAD s/p PCI HX
- continue ASA and statin
Benign HTN
- cont. Norvasc
HLD
- on Rosuvastatin
Anxiety
- cont. ADULT LIVE IN CAREGIVER Xanax PRN
HX Urinary retention
DVT Px: SQH
Full code
IP TLM
[2024-09-18] MEDS: LASIX 40 MG IV (18:07)
[2024-09-18 18:09] VITALS: BMI 30.4
[2024-09-18 18:50] LABS: COVID-19 Antigen Negative (Negative)
[2024-09-18 19:07] VITALS: BP 127/87
[2024-09-18 19:20] VITALS: BP 109/53; BMI 30.8
[2024-09-18 20:39] VITALS: BP 109/53; BMI 30.8
[2024-09-18 20:45] LABS: Troponin I 0.019 ng/ml
[2024-09-18] MEDS: CRESTOR 40 MG PO (21:01)
[2024-09-18] MEDS: NORVASC 10 MG PO (21:01)
[2024-09-18] MEDS: HEPARIN 5000 UNITS SC (21:01)
[2024-09-18] MEDS: XANAX 0.5 MG PO (21:07)
[2024-09-18 23:21] VITALS: BP 113/58
[2024-09-19 02:30] LABS: Troponin I 0.015 ng/ml
[2024-09-19 03:30] VITALS: BP 109/53
[2024-09-19] MEDS: TYLENOL 650 MG PO ×2 (03:32→22:34)
--- NOTE | 2024-09-19 04:18 | PTCARENOTE ---
pt received on unit on 09/18/23 at approximately 1945. Pt walked from stretcher to bed, AAOx3 VSS. Pt spo2 in mid 80s but quickly went up to 95 after a couple deep breaths. No s/o pain, SOB, dizziness. Pt placed on tele showing NSR. Pt oriented to
room and able to make needs known, call vuong within reach.
[2024-09-19 07:15] VITALS: BP 115/56
[2024-09-19 07:41] LABS: Hematocrit 31.5 % (39.0-52.0); Hemoglobin 10.9 g/dL (13.0-18.0); Mean Corp Hgb Conc. 34.6 g/dL (33.0-37.0); Mean Corpuscular Hgb 35.7 pg (27.0-31.0); Mean Corpuscular Volume 103.3 fL (80.0-94.0); Mean Platelet Volume 9.9 fL (7.4-10.4); Platelet Count 131 10^3/uL (130-400); Red Blood Cell Count 3.05 10^6/uL (4.70-6.10); Red Cell Dist. Width 14.6 % (11.5-14.5); White Blood Cell Count 3.8 10^3/uL (4.8-10.8)
[2024-09-19] MEDS: HEPARIN 5000 UNITS SC ×2 (08:11→20:54)
[2024-09-19] MEDS: VITAMIN D3 (cholecalciferol) 125 MCG PO (08:11)
[2024-09-19] MEDS: FLOMAX 0.4 MG PO (08:12)
[2024-09-19] MEDS: ASPIR LOW (ENTERIC COATED) 81 MG PO (08:12)
[2024-09-19] MEDS: PROTONIX 40 MG PO (08:12)
[2024-09-19 08:13] LABS: Troponin I < 0.012 ng/ml
[2024-09-19 08:31] LABS: ALT (SGPT) 11 U/L (0-50); AST (SGOT) 18 U/L (17-59); Albumin 3.7 g/dl (3.5-5.0); Alkaline Phosphatase 96 U/L (38-126); Blood Urea Nitrogen 12 mg/dl (9-20); Calcium 8.7 mg/dl (8.4-10.2); Carbon Dioxide 26 mmol/L (22-30); Chloride 104 mmol/L (98-107); Estimated Creatinine Clearance 104 ml/min; Glucose 87 mg/dl (70-99); HDL Cholesterol 50 mg/dl; LDL Cholesterol, Calculated 37 mg/dl; Potassium 3.8 mmol/L (3.5-5.1); Sodium 139 mmol/L (135-145); Total Bilirubin 0.8 mg/dl (0.2-1.3); Total Cholesterol 109 mg/dl (50-199); Total Protein 6.1 g/dl (6.3-8.2); Triglyceride 110 mg/dl (10-149); Very Low Density Lipoprotein 22 mg/dl (0-30); eGFR > 60.00
--- NOTE | 2024-09-19 09:05 | VNURNOTE ---
Chart reviewed. Patient is current with [facility] nursing, OT. Will continue to follow hospital course and DC plans.
[2024-09-19 11:49] VITALS: BP 101/47
--- NOTE | 2024-09-19 15:38 | CON.CAR ---
Addendum entered and electronically signed by Spencer Hodgson DO 09/19/24 22:22:
I saw and examined the patient.
The Layer Off's note was reviewed and I agree with the note.
Comment:
Plan:
Continue IV lasix diuresis
Dry wt felt to be 225 lbs
Echo pending
HF education
He is not on beta paco due to sinus bradycardia.
Cont crestor for hyperlipidemia.
Trops in negative range.
Reviewed with family at bedside.
Original Note:
Consultation
Consultation Request
Date/Time Consultation Performed: 09/19/24
Requesting Provider: Dr. Khanna
Performing Provider: Ekaterina Ramirez PA-C for Dr. Hdogson
Reason for Consultation: SOB, CHF
Medical History
-
Chief Complaint: weight gain, LE edema, DIMAS
History of Present Illness:
Patient is an 84-year-old male with past medical history of CAD status post stenting and CABG including MCMILLAN to LAD, SVG to diagonal 1, OM 2, RPL 10/2019, PVD with prior right SFA stent 03/2010 and left SFA stent 06/2010, hypertension, hyperlipidemia,
mild to moderate by echo in 2022 who presented to [facility] due to worsening lower extremity edema and weight gain over the last week or so. Reports dry weight of approximately 225 pounds in weight per visiting nurse yesterday was up
to 236 pounds. He is not chronically on a diuretic. ProBNP 1070. He also reported worsening dyspnea on exertion with some associated chest pressure relieved by resting. Never any rest pain. Troponins detectable but downtrending, now negative.
PMH:
CAD
s/p PDA stent 1999
s/p RCA stent 2014
s/p LAD stent 2014
s/p CABG including MCMILLAN to LAD, SVG to diagonal 1, OM 2, RPL 10/2019
PVD with prior right SFA stent 03/2010 and left SFA stent 06/2010
mild to mod
HTN
HLD
Sinus bradycardia
History of falls
GERD
Anxiety
Former smoker
Past Medical History
Past Medical History: Other (in HPI)
Social History
Tobacco: Former Smoker
Alcohol: Binge Drinker
Personal:
Living: With Family
Employment: Retired
Family History
Family History: CAD
Allergies / Home Medications
Allergy/AdvReac Type Severity Reaction Status Date / Time
clopidogrel bisulfate Allergy Unknown Collapsed Verified 02/08/24 10:20
[From Plavix] from
Muscle
pain/wkns,
Swelling
Hands, Ft,
Ankles
�Medication �Instructions �Recorded �Confirmed �Type
alprazolam 0.5 mg tablet 0.5 mg PO BIDPRN PRN anxiety 11/03/19 09/18/24 History
amlodipine 10 mg tablet (Norvasc) 10 mg PO HS Blood Pressure 08/10/24 09/18/24 History
aspirin 81 mg tablet,delayed 81 mg PO DAILY Blood Clot 08/10/24 09/18/24 History
release Prevention/Tx
cholecalciferol (vitamin D3) 125 125 mcg PO Q48H Supplement 08/10/24 09/18/24 History
mcg (5,000 unit) tablet (Vitamin
D3)
cyanocobalamin (vitamin B-12) 1,000 mcg PO Q48H Supplement 08/10/24 09/18/24 History
1,000 mcg tablet
tamsulosin 0.4 mg capsule 0.4 mg PO DAILY #30 caps 08/10/24 09/18/24 Rx
acetaminophen 650 mg 1,300 mg PO Q8HPRN PRN mild pain 09/18/24 09/18/24 History
tablet,extended release (Tylenol
Arthritis Pain)
lidocaine 4 % topical patch 1 patch topical DAILY Pain 09/18/24 09/18/24 History
omeprazole 40 mg capsule,delayed 40 mg PO DAILY Gastrointestinal 09/18/24 09/18/24 History
release Issue
rosuvastatin 40 mg tablet 40 mg PO HS High Cholesterol 09/18/24 09/18/24 History
Review of Systems
-
History Source: Patient
All other systems: Negative unless noted
Physical Exam
Vital Signs
Temp Pulse Resp BP Pulse Ox
96.7 F L 67 18 101/47 91
09/19/24 11:49 09/19/24 11:49 09/19/24 11:49 09/19/24 11:49 09/19/24 11:49
Lab Results
09/19/24 07:28
09/19/24 07:28
Troponin I < 0.012 ng/ml 09/19/24 07:28
Jlw-O-Xthgxsvtrlr Pept 1070 pg/ml 09/18/24 14:14
Physical Exam
General: No Apparent Distress and Comfortable
HEENT: Normocephalic, Anicteric and Moist Mucous Membranes
Respiratory: Crackles and Non Labored Respirations
Cardiac: S1/S2, Regular Rhythm and Murmur
GI: Soft, Non Tender, Non Distended and Normal Bowel Sounds
Musculoskeletal: No Clubbing, No Cyanosis and Edema (3+ of B/L LE to thigh)
Skin: Warm and Dry
Neuro: AO x 3
Impression / Plan
-
Primary Machine Cleaner: Dr. Talbert
Assessment:
Presentation with DIMAS, LE edema, weight gain
Acute CHF
CAD
s/p PDA stent 1999
s/p RCA stent 2014
s/p LAD stent 2014
s/p CABG including MCMILLAN to LAD, SVG to diagonal 1, OM 2, RPL 10/2019
PVD with prior right SFA stent 03/2010 and left SFA stent 06/2010
mild to mod
HTN
HLD
Sinus bradycardia
History of falls
GERD
Anxiety
Former smoker
ETOH use
ECHO 11/09/22: EF 54%, mild concentric LVH, MAC, mild MR, mild to moderate with peak/mean gradients 40/19 mmHg, BENITO 1.4 cm�, mild AR, normal right heart with mild pulmonary hypertension, PAP 37 mmHg, mildly dilated aortic root 4.3 cm
Plan:
-Patient presented with dyspnea on exertion, lower extremity edema, weight gain, and evidence of acute CHF. ProBNP 1070. CXR without significant effusions or pulm edema noted.
-continue diuresis. will place on IV lasix 40mg daily. was not on diuretic as OP. Cr stable. dry weight was felt to be 225 pounds.
-CHF education
-echo pending, with history of mild to mod by last echo 2022 as above
-no BB due to history of sinus bradycardia
-history of CAD as above. reports some chest pressure with DIMAS. trops detectable but within negative range and trending down.
-continue OP norvasc
-LDL 37. continue OP crestor.
Data Reviewed
-
EKG: Tracing Personally Visualized and interpreted
Radiology: Report Reviewed by me
Medical Tests (Nuc Med, Echo etc): Report Reviewed by me
Labs: Labs Reviewed by me
Old Records: Reviewed
[2024-09-19 15:51] VITALS: BP 127/54
--- NOTE | 2024-09-19 16:09 | CM ---
fitness club manager reviewed patient's chart and met with patient and patient was admitted from home where he lives with his spouse, patient is independent with adl's and has a walker and scooter to use with ambulation. Patient is current with [facility] and
patient will resume visiting nurse services at discharge.
Plan; Home with spouse and [facility] when stable
PCP: Dr. Carter
Pharmacy; [facility]
[2024-09-19] MEDS: LASIX 20 MG IV (16:23)
[2024-09-19] MEDS: LASIX 40 MG IV (16:23)
--- NOTE | 2024-09-19 17:41 | W.PN.HOSP.TC ---
Today's Communication/Plan
-
Concern for acute CHF exacerbation
-Cards cx
-echo
-daily IV Lasix
-repeat labs in am
Consider Pulm Cx for Pulmonary fibrosis
Assessment / Plan
Assessment / Plan
#Persistent DIMAS, elevated proBNP DDX; concern is for acute CHF vs pulmonary fibrosis
-Cards cx appreciated
-echo pending
-continue IV Lasix daily for now
-follow labs, check Mg level
-if normal echo and still no improvement, consider Pulm cx
#CAD s/p PCI HX and CABG
- continue ASA and statin
#Essential HTN
- cont. Norvasc
#HLD
- on Rosuvastatin
#Anxiety
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
#HX Urinary retention
DVT proph- SQ heparin
Full Code
Anticipated Discharge: 24 - 48 hours
Subjective/Interval History
-
Date of Service: September 19, 2024
He is standing up next to the bed, due to low back discomfort; he feels slightly improved, but still with some DIMAS. No CP. no palpitations.
Objective Data
-
Labs:
Laboratory Results
09/19/24
07:28
WBC 3.8 L
Hgb 10.9 L
Hct 31.5 L
Plt Count 131
Sodium 139
Potassium 3.8
Chloride 104
Carbon Dioxide 26
BUN 12
Creatinine 0.6 L
Glucose 87
Calcium 8.7
Total Bilirubin 0.8
AST 18
ALT 11
Alkaline Phosphatase 96
Vital Signs:
Vital Signs
Temp Pulse Resp BP Pulse Ox
97.9 F 68 18 127/54 90
09/19/24 15:51 09/19/24 15:51 09/19/24 15:51 09/19/24 15:51 09/19/24 15:51
I&O
09/18/24 09/19/24 09/20/24
06:59 06:59 06:59
Intake Total 480 / 480
Output Total 1500 / 1500
Balance -1020 / -1020
Review of Systems
-
History Source: Patient
All other systems: Reviewed and negative
Physical Exam
-
General: Well Developed, Well Nourished and No Apparent Distress
HEENT: Normocephalic, Atraumatic and Moist Mucous Membranes
Respiratory: Crackles and Non Labored Respirations
Cardiac: Regular Rhythm, S1/S2 and Murmur
GI: Soft, Nontender and Nondistended
Musculoskeletal: No Cyanosis, Edema, Right Lower Extrem (3+) and Edema, Left Lower Extrem (3+)
Skin: Dry
Neuro: AO x 3 and No Motor Deficits
Psych: Calm
Data Reviewed
-
Diagnostic Radiology: Image personally visualized and interpreted and Report Reviewed by me
Medical Tests (Nuc Med, Echo etc): Image personally visualized and interpreted and Report Reviewed by me
Labs: Labs Reviewed by me
[2024-09-19] MEDS: XANAX 0.5 MG PO (20:55)
[2024-09-19] MEDS: CRESTOR 40 MG PO (20:55)
[2024-09-19] MEDS: NORVASC 10 MG PO (20:55)
[2024-09-19 23:26] VITALS: BP 98/47
[2024-09-20 03:30] VITALS: BP 110/55
[2024-09-20 04:33] VITALS: BMI 29.6
[2024-09-20 07:30] VITALS: BP 121/59
[2024-09-20] MEDS: PROTONIX 40 MG PO (08:09)
[2024-09-20] MEDS: ASPIR LOW (ENTERIC COATED) 81 MG PO (08:09)
[2024-09-20] MEDS: FLOMAX 0.4 MG PO (08:09)
[2024-09-20] MEDS: HEPARIN 5000 UNITS SC ×2 (08:09→19:41)
[2024-09-20 08:39] LABS: Blood Urea Nitrogen 15 mg/dl (9-20); Calcium 8.9 mg/dl (8.4-10.2); Carbon Dioxide 27 mmol/L (22-30); Chloride 101 mmol/L (98-107); Estimated Creatinine Clearance 78 ml/min; Glucose 84 mg/dl (70-99); Potassium 3.4 mmol/L (3.5-5.1); Sodium 135 mmol/L (135-145); eGFR > 60.00
[2024-09-20] MEDS: LASIX 40 MG IV (09:45)
--- NOTE | 2024-09-20 09:55 | W.PN.CARDCBS ---
Addendum entered and electronically signed by Ajay Quintero MD 09/20/24 11:45:
I saw and examined the patient.
The Operations Analyst's note was reviewed and I agree with the note.
Comment: Briefly, 84-year-old man past medical history HFpEF and MV CAD with prior CABG who presents in acute decompensated heart failure
Patient tells me that clinically he is significantly improved since admission with IV diuresis
Still appears volume overloaded on exam and is requiring supplemental oxygen
Echo here with preserved LV function and mild to moderate aortic stenosis, unchanged from prior
Recommend continuing IV Lasix, monitoring creatinine/electrolytes and daily weights
Rest per Ekaterina Ramirez
Original Note:
Today's Communication / Plan
-
Continue IV Lasix
Replete potassium
Impression / Plan
-
Primary Forest Fire Prevention Manager: Dr. Talbert
Assessment:
Presentation with DIMAS, LE edema, weight gain
Acute CHF
CAD
s/p PDA stent 1999
s/p RCA stent 2014
s/p LAD stent 2014
s/p CABG including MCMILLAN to LAD, SVG to diagonal 1, OM 2, RPL 10/2019
PVD with prior right SFA stent 03/2010 and left SFA stent 06/2010
mild to mod
HTN
HLD
Sinus bradycardia
History of falls
GERD
Anxiety
Former smoker
ETOH use
ECHO 11/09/22: EF 54%, mild concentric LVH, MAC, mild MR, mild to moderate with peak/mean gradients 40/19 mmHg, BENITO 1.4 cm�, mild AR, normal right heart with mild pulmonary hypertension, PAP 37 mmHg, mildly dilated aortic root 4.3 cm
ECHO 09/19/24: EF 56%, stage II diastolic dysfunction, MAC, mild MR, mild to moderate AAS with peak/mean gradients 39/23 mmHg, BENITO 1.5 cm�, mild AR, mild TR, PAP 45 mmHg, mildly dilated aortic root
Plan:
-Reports improvement in breathing as well as lower extremity edema with IV Lasix, continue. Weight trending down overnight if accurate. Creatinine stable. Was not on diuretic as an outpatient
-Replete potassium
-Wean supplemental oxygen as able
-CHF education
-echo stable compared to prior from 2022, results reviewed with patient 09/20
-no BB due to history of sinus bradycardia
-Could consider addition of SGLT2 inhibitor, will have case management assess cost
-history of CAD as above. reports some chest pressure with DIMAS, resolved. trops detectable but within negative range and trending down.
-continue OP norvasc
-LDL 37. continue OP crestor.
Progress Note - Forest Fire Prevention Manager
Subjective
Date of Service: September 20, 2024
Reports improvement in breathing and lower extremity edema
Objective
Labs:
09/19/24 07:28
09/20/24 06:47
Labs
Hgb 10.9 g/dL (13.0-18.0) L 09/19/24 07:28
Hct 31.5 % (39.0-52.0) L 09/19/24 07:28
Plt Count 131 10^3/uL (130-400) 09/19/24 07:28
Sodium 135 mmol/L (135-145) 09/20/24 06:47
Potassium 3.4 mmol/L (3.5-5.1) L 09/20/24 06:47
BUN 15 mg/dl (9-20) 09/20/24 06:47
Creatinine 0.8 mg/dL (0.7-1.3) 09/20/24 06:47
Glucose 84 mg/dl (70-99) 09/20/24 06:47
Troponins
09/18/24 09/18/24 09/19/24
14:14 20:08 01:58
Troponin I 0.014 0.019 D 0.015
09/19/24
07:28
Troponin I < 0.012
Vital Signs and I&O:
Vital Signs
Temp Pulse Resp BP Pulse Ox
98.7 F 68 18 121/59 94
09/20/24 07:30 09/20/24 07:30 09/20/24 07:30 09/20/24 07:30 09/20/24 07:30
Vital Signs
Temp Pulse Resp BP Pulse Ox
98.7 F 68 18 121/59 94
09/20/24 07:30 09/20/24 07:30 09/20/24 07:30 09/20/24 07:30 09/20/24 07:30
Intake & Output
09/18/24 09/19/24 09/20/24 09/21/24
07:59 07:59 07:59 07:59
Intake Total 480 / 480 720 / 720
Output Total 1500 / 1500
Balance -1020 / -1020 720 / 720
Physical Exam
Physical Exam
GEN: No distress, awake, alert, oriented x3. Sitting in chair. On supplemental O2
HEENT: supple, anicteric, mmm, EOMI
LUNGS: CTA bilaterally, no wheezes/rales
CV: Reg, S1/S2, 1/6 syst LSB
ABD: soft, BS+, NT/ND
EXT: No cyanosis, clubbing. 1+ edema of bilateral lower extremity
NEURO: Gross non-focal
SKIN: Warm, pink, dry. No rash
[2024-09-20] MEDS: TYLENOL 650 MG PO ×2 (10:57→21:55)
[2024-09-20 11:00] VITALS: BP 120/58
--- NOTE | 2024-09-20 14:33 | CM ---
Egan check for Farxiga. Pt has future scripts.
Farxiga 10 mg would cost $144.81 for 30 day count
Updated ordering physician
Pt current w/ [facility]
Plan: Home w/ [facility]
[2024-09-20 15:00] VITALS: BP 115/57
--- NOTE | 2024-09-20 17:14 | W.PN.HOSP.TC ---
Today's Communication/Plan
-
CW IV lasix
Assessment / Plan
Assessment / Plan
#Persistent DIMAS, elevated proBNP DDX clinical concern is for acute CHF
-Cards cx appreciated
-echo noted
-continue IV Lasix daily per cards
-follow labs
# Hypokalemia -replete
#CAD s/p PCI HX and CABG
- continue ASA and statin
#Essential HTN
- cont. Norvasc
#HLD
- on Rosuvastatin
#Anxiety
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
#HX Urinary retention
DVT proph- SQ heparin
Full Code
Anticipated Discharge: Within 24 hours
Subjective/Interval History
-
Date of Service: September 20, 2024
Feels ok
Denies SOB at rest
Objective Data
-
Labs:
Laboratory Results
09/20/24
06:47
Sodium 135
Potassium 3.4 L
Chloride 101
Carbon Dioxide 27
BUN 15
Creatinine 0.8
Glucose 84
Calcium 8.9
Vital Signs:
Vital Signs
Temp Pulse Resp BP Pulse Ox
97.6 F 70 16 115/57 94
09/20/24 15:00 09/20/24 15:00 09/20/24 15:00 09/20/24 15:00 09/20/24 15:00
I&O
09/19/24 09/20/24 09/21/24
06:59 06:59 06:59
Intake Total 480 / 480 720 / 720
Output Total 1500 / 1500
Balance -1020 / -1020 720 / 720
Review of Systems
-
Constitutional: Denies Fever
Cardiac: Denies Chest Pain
Abdomen/GI: Denies Abdominal Pain, Nausea or Vomiting
Neuro: Denies Dizzy or Headache
Physical Exam
-
General: No Apparent Distress
HEENT: Moist Mucous Membranes
Respiratory: Clear to Auscultation and Non Labored Respirations; Negative Accessory Resp Muscle Use
Cardiac: Regular Rhythm and S1/S2
GI: Soft
Musculoskeletal: Edema, Right Lower Extrem and Edema, Left Lower Extrem
Neuro: AO x 3
Psych: Calm
Data Reviewed
-
Labs: Labs Reviewed by me
[2024-09-20] MEDS: KCL 40 MEQ PO (17:45)
[2024-09-20] MEDS: CRESTOR 40 MG PO (19:44)
[2024-09-20 19:45] VITALS: BP 133/60
[2024-09-20] MEDS: NORVASC 10 MG PO (19:45)
[2024-09-20] MEDS: XANAX 0.5 MG PO (21:55)
[2024-09-20 23:23] VITALS: BP 123/56
[2024-09-21 03:24] VITALS: BP 115/53
[2024-09-21 06:00] VITALS: BMI 29.5
[2024-09-21 07:00] VITALS: BP 123/58
[2024-09-21 09:11] LABS: Blood Urea Nitrogen 16 mg/dl (9-20); Calcium 8.9 mg/dl (8.4-10.2); Carbon Dioxide 27 mmol/L (22-30); Chloride 101 mmol/L (98-107); Estimated Creatinine Clearance 89 ml/min; Glucose 80 mg/dl (70-99); Potassium 3.7 mmol/L (3.5-5.1); Sodium 136 mmol/L (135-145); eGFR > 60.00
[2024-09-21 10:55] VITALS: BP 120/64
[2024-09-21] MEDS: VITAMIN D3 (cholecalciferol) 125 MCG PO (10:55)
[2024-09-21] MEDS: PROTONIX 40 MG PO (10:55)
[2024-09-21] MEDS: FLOMAX 0.4 MG PO (10:55)
[2024-09-21] MEDS: ASPIR LOW (ENTERIC COATED) 81 MG PO (10:55)
[2024-09-21] MEDS: LASIX 40 MG IV (10:56)
[2024-09-21] MEDS: FLUSH (NSS) 2 FLUSH IV (10:57)
[2024-09-21] MEDS: HEPARIN 5000 UNITS SC (10:57)
--- NOTE | 2024-09-21 13:36 | W.PN.CARDCBS ---
Today's Communication / Plan
-
Okay for discharge
See below for medication recommendations
Impression / Plan
-
Primary [place] [employer] Vessel Operator: Dr. Talbert
Assessment:
Presentation with DIMAS, LE edema, weight gain
Acute CHF
CAD
s/p PDA stent 1999
s/p RCA stent 2014
s/p LAD stent 2014
s/p CABG including MCMILLAN to LAD, SVG to diagonal 1, OM 2, RPL 10/2019
PVD with prior right SFA stent 03/2010 and left SFA stent 06/2010
mild to mod
HTN
HLD
Sinus bradycardia
History of falls
GERD
Anxiety
Former smoker
ETOH use
ECHO 11/09/22: EF 54%, mild concentric LVH, MAC, mild MR, mild to moderate with peak/mean gradients 40/19 mmHg, BENITO 1.4 cm�, mild AR, normal right heart with mild pulmonary hypertension, PAP 37 mmHg, mildly dilated aortic root 4.3 cm
ECHO 09/19/24: EF 56%, stage II diastolic dysfunction, MAC, mild MR, mild to moderate AAS with peak/mean gradients 39/23 mmHg, BENITO 1.5 cm�, mild AR, mild TR, PAP 45 mmHg, mildly dilated aortic root
Plan:
Overall he looks okay from a cardiac standpoint.
Okay for discharge.
Farxiga is $144 for 30 days will hold off for now and instead add spironolactone. Consider SGLT2 as outpatient
He has follow-up with our office on September 27.
Recommended cardiac medications at discharge:
Furosemide 40 mg a day
Spironolactone 12.5 mg a day
Aspirin 81 mg a day
Rosuvastatin 40 mg daily
Amlodipine 5 mg a day (lower dose)
Please check BMP in 1 week
Progress Note - [place] Gillnet Vessel Operator
Subjective
Date of Service: September 21, 2024:
84-year-old man with HFpEF, multivessel CAD prior CABG admitted with heart failure, has peak mean aortic valve gradients of 39 and 23 with aortic valve area 1.5 cm to by echo September 2024, mild mitral regurgitation and pulmonary artery systolic
pressure 45 mmHg. Now feels well.
PMH: Hypertension, hyperlipidemia, PAD, prior PCI, GERD
Outpatient Meds: Amlodipine, aspirin 81 mg a day, rosuvastatin
Inpatient Meds: Amlodipine 10 mg a day, aspirin 81 mg a day, pantoprazole 40 mg a day, rosuvastatin 40 mg a day, tamsulosin 0.4 and furosemide 40 mg daily
120/64, pulse 66, respiratory 20, weight is 101.3 kg was 105.9 at admit, BUN and creatinine 16 and 0.7, potassium 3.7, head neck exam unremarkable, lungs are clear, neck veins are okay, abdomen benign, not much edema
Objective
Labs:
09/19/24 07:28
09/21/24 06:49
Labs
Hgb 10.9 g/dL (13.0-18.0) L 09/19/24 07:28
Hct 31.5 % (39.0-52.0) L 09/19/24 07:28
Plt Count 131 10^3/uL (130-400) 09/19/24 07:28
Sodium 136 mmol/L (135-145) 09/21/24 06:49
Potassium 3.7 mmol/L (3.5-5.1) 09/21/24 06:49
BUN 16 mg/dl (9-20) 09/21/24 06:49
Creatinine 0.7 mg/dL (0.7-1.3) 09/21/24 06:49
Glucose 80 mg/dl (70-99) 09/21/24 06:49
Troponins
09/18/24 09/18/24 09/19/24
14:14 20:08 01:58
Troponin I 0.014 0.019 D 0.015
09/19/24
07:28
Troponin I < 0.012
Vital Signs and I&O:
Vital Signs
Temp Pulse Resp BP Pulse Ox
36.4 C 66 20 120/64 96
09/21/24 07:00 09/21/24 10:55 09/21/24 10:55 09/21/24 10:55 09/21/24 10:55
Vital Signs
Temp Pulse Resp BP Pulse Ox
36.4 C 66 20 120/64 96
09/21/24 07:00 09/21/24 10:55 09/21/24 10:55 09/21/24 10:55 09/21/24 10:55
Intake & Output
09/19/24 09/20/24 09/21/24 09/22/24
07:59 07:59 07:59 07:59
Intake Total 480 / 480 720 / 720 1320 / 1320 480 / 480
Output Total 1500 / 1500 1100 / 1100
Balance -1020 / -1020 720 / 720 220 / 220 480 / 480
Physical Exam
Physical Exam
See above
--- NOTE | 2024-09-21 14:45 | VNURNOTE ---
Confirmed with patient he is agreeable to resume [facility]. [facility] referral accepted. [facility] Intake office aware of DC.
[2024-09-21 14:59] VITALS: BP 123/54
--- NOTE | 2024-09-21 16:07 | W.PN.HOSP.TC ---
Today's Communication/Plan
-
DC
Assessment / Plan
Assessment / Plan
#Persistent DIMAS, elevated proBNP DDX clinical concern is for acute CHF
-Cards cx appreciated
-echo noted
-Improvement in symptoms-last 7 pounds.
-Discussed with cardiology today-recommend switching to oral Lasix 40 mg daily and adding spironolactone and decreasing Norvasc. Follow-up BMP in a week and cardiology as outpatient.
#CAD s/p PCI HX and CABG
- continue ASA and statin
#Essential HTN
- cont. Norvasc
#HLD
- on Rosuvastatin
#Anxiety
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
#HX Urinary retention
DVT proph- SQ heparin
Full Code
Medically stable for discharge home.
More than 30 minutes spent in discharge including
Final examination of the patient
Summarizing hospital stay
Instructions for continuing care to all relevant caregivers
Preparation of discharge records, prescriptions, and referral forms
Total time spent (in minutes): 32
Anticipated Discharge: Today
Subjective/Interval History
-
Date of Service: September 21, 2024
Patient feeling improved. Denies shortness of breath. Improved lower extremity edema. Improved weight.
Voicing no new specific complaints.
Denies chest pain.
Objective Data
-
Labs:
Laboratory Results
09/21/24
06:49
Sodium 136
Potassium 3.7
Chloride 101
Carbon Dioxide 27
BUN 16
Creatinine 0.7
Glucose 80
Calcium 8.9
Vital Signs:
Vital Signs
Temp Pulse Resp BP Pulse Ox
97.5 F 69 21 123/54 92
09/21/24 14:59 09/21/24 14:59 09/21/24 14:59 09/21/24 14:59 09/21/24 14:59
I&O
09/20/24 09/21/24 09/22/24
06:59 06:59 06:59
Intake Total 720 / 720 1320 / 1320 480 / 480
Output Total 1100 / 1100
Balance 720 / 720 220 / 220 480 / 480
Review of Systems
-
Constitutional: Denies Fever
EENT: Denies Sore Throat
Respiratory: Denies Cough
Abdomen/GI: Denies Abdominal Pain, Nausea or Vomiting
Neuro: Denies Dizzy
Physical Exam
-
General: Comfortable
HEENT: Moist Mucous Membranes
Respiratory: Clear to Auscultation and Non Labored Respirations; Negative Accessory Resp Muscle Use
Cardiac: Regular Rhythm and S1/S2
Musculoskeletal: No Edema
Neuro: AO x 3
Psych: Calm; Negative Confused
Data Reviewed
-
Labs: Labs Reviewed by me
== END 2024-09-21 15:23 | disposition home health service (06) | DRG 291 ==
LOC: 4 WEST ACU 19:19
PROVIDERS: Physician Assistant; ADMITTING PHYSICIAN Internal Medicine; ATTENDING PHYSICIAN Internal Medicine; CONSULT PHYSICIAN Nuclear Medicine Nuclear Cardiology; EMERGENCY PHYSICIAN Emergency Medicine; FAMILY PHYSICIAN Internal Medicine
DX: I11.0 Hypertensive heart disease with heart failure (principal); I50.33 Acute on chronic diastolic (congestive) heart failure; I25.10 Atherosclerotic heart disease of native coronary artery without angina pectoris; E78.00 Pure hypercholesterolemia, unspecified; I73.9 Peripheral vascular disease, unspecified; K21.9 Gastro-esophageal reflux disease without esophagitis; I35.0 Nonrheumatic aortic (valve) stenosis; E87.6 Hypokalemia; F41.9 Anxiety disorder, unspecified; R00.1 Bradycardia, unspecified; Z95.820 Peripheral vascular angioplasty status with implants and grafts; Z95.5 Presence of coronary angioplasty implant and graft; Z79.82 Long term (current) use of aspirin; Z79.02 Long term (current) use of antithrombotics/antiplatelets; Z79.899 Other long term (current) drug therapy; Z95.1 Presence of aortocoronary bypass graft; Z87.891 Personal history of nicotine dependence; Z11.52 Encounter for screening for COVID-19
CPT/HCPCS: 71046; 80048; 80053; 80061; 83735; 83880; 84484; 85025; 85027; 87502; 87811; 93005; 93306; 99285

== ENCOUNTER → 2025-05-30 09:54 | Outpatient (REF) | payer OTHER, SELFPAY | LOC: RAD 09:54 | PROVIDERS: ATTENDING PHYSICIAN Surgery Vascular Surgery; FAMILY PHYSICIAN Internal Medicine | DX: I71.40 Abdominal aortic aneurysm, without rupture, unspecified (principal); I73.9 Peripheral vascular disease, unspecified | CPT/HCPCS: 76770; 93922 ==

== ENCOUNTER → 2025-09-10 10:05 | Outpatient (REF) | payer OTHER, SELFPAY | LOC: RCS 10:05 | PROVIDERS: ATTENDING PHYSICIAN Internal Medicine Cardiovascular Disease; FAMILY PHYSICIAN Internal Medicine | DX: I35.0 Nonrheumatic aortic (valve) stenosis (principal) | CPT/HCPCS: 93306 ==